=== PATIENT | female | born 1940 | race Caucasian/White ===

== ENCOUNTER 2018-05-07 06:13 | Emergency (ER) | payer OTHER, SELFPAY ==
[2018-05-07] VITALS (50 sets, daily range): BP systolic 134–205; BP diastolic 57–106; PULSE 45–58; RESP 11–22; TEMP 36.8; O2SAT 89–96
--- NOTE | 2018-05-07 06:35 | ED.GENADUL ---
Disposition Clinical Impression: Gastritis Disposition: STILL A PATIENT Medical Decision Making - Lab Data Laboratory Results - last 24 hr 05/07/18 05/07/18 05/07/18 06:38 06:38 06:38 WBC 6.24 RBC 4.47 Hgb 13.6 Hct 42.4 MCV 94.9 MCH 30.4 MCHC 32.1 RDW 15.3 H Plt Count 235 MPV 10.1 Immature Gran % 0.0 Neutrophils % 60.9 Lymphocytes % 30.8 Monocytes % 7.2 Eosinophils % 0.8 Basophils % 0.3 Absolute Neutrophils 3.80 Absolute Lymphocytes 1.92 Absolute Monocytes 0.45 Absolute Eosinophils 0.05 Absolute Basophils 0.02 PT 21.1 H INR 2.2 APTT 31.9 H Sodium 140 Potassium 4.0 Chloride 104 Carbon Dioxide 27.9 Anion Gap 8.1 BUN 23 H Creatinine 0.99 Estimated GFR/1.73 m2 54.39 Glucose 116 H Calcium 8.5 Magnesium 2.3 Total Bilirubin 0.4 AST 24 ALT 29 Alkaline Phosphatase 98 Troponin I < 0.02 NT-Pro-B Natriuret Pep Total Protein 7.7 Albumin 3.6 05/07/18 06:38 WBC RBC Hgb Hct MCV MCH MCHC RDW Plt Count MPV Immature Gran % Neutrophils % Lymphocytes % Monocytes % Eosinophils % Basophils % Absolute Neutrophils Absolute Lymphocytes Absolute Monocytes Absolute Eosinophils Absolute Basophils PT INR APTT Sodium Potassium Chloride Carbon Dioxide Anion Gap BUN Creatinine Estimated GFR/1.73 m2 Glucose Calcium Magnesium Total Bilirubin AST ALT Alkaline Phosphatase Troponin I NT-Pro-B Natriuret Pep 259 Total Protein Albumin Results reviewed for labs ordered during visit: Yes - EKG Data -: EKG Interpreted by Me Rate: bradycardia 05/07/18 06:37 Sinus bradycardia, rate 64, QRS is narrow, no ST segment elevation - Radiology Data Radiology results: image reviewed - Medical Decision Making This is a delightful 78-year-old female presents with a worried that she may have had recurrent atrial fibrillation. She developed substernal/epigastric burning sensation this morning at 4 AM. She arrives with improvement of her discomfort. She is afebrile and otherwise well-appearing. Differential diagnosis includes gastritis, ACS, arrhythmia. Patient placed on registered nurse cardiac telemetry, IV access established, referred for blood work, EKG, chest x-ray. She is given a GI cocktail. Labs reveal white count 6, hematocrit 42, platelets 235, INR 2.2, sodium 140, potassium 4.0, chloride 104, bicarb 27, BUN 23, creatinine 0.9, LFTs unremarkable, troponin negative, BNP 259. Patient's pain improved/resolved following GI cocktail. We will observe for additional 3 hours and check repeat troponin. Case to be signed out to Dr. Gaspar pending repeat laboratories. Please see her note regarding final impression and disposition. History of Present Illness - General Chief complaint: Chest Pain Stated complaint: AFIB Time Seen by Provider: 05/07/18 06:14 Source: patient, family, RN notes reviewed Mode of arrival: ambulatory Limitations: no limitations - History of Present Illness Initial comments: 78-year-old female states she was awakened this morning at 04 100 with substernal burning chest discomfort that radiated to both arms. Is rated 8 out of 10 and over the past versus dissipated now to 2 out of 10. No other exacerbating or relating factors. She denies to be vomiting. States she had nausea yesterday but no emesis. She denied recent fever, shortness of breath. She has chronic lower extremity swelling which is unchanged. Her urine output is unchanged History of A. fib, on warfarin, tachybradycardia syndrome, hypertension, diabetes, chronic dependent edema. History of bradycardia with AV yan blocking agents chest pressure. Currently being maintained on amiodarone - Related Data Insulin Detemir [Levemir] 50 unit SQ .QHS 12/31/15 Simvastatin 10 mg PO DAILY 12/31/15 Valsartan [Diovan] 320 mg PO DAILY 12/31/15 Levothyroxine Sodium 100 mcg PO DAILY 07/14/16 Magnesium Oxide [Mag-Ox 400] 400 mg PO BID #180 tab 07/15/16 Amiodarone HCl 200 mg PO DAILY #90 tab-cap 09/16/16 Torsemide 10 mg PO DAILY #30 tab-cap 04/23/17 Clobetasol/Emoll [Temovate Emollient 0.05%] 15 gm TP DAILY 01/06/18 Lancets [Bd Ultra-Fine Ii] 1 each MC PRN each 01/06/18 Warfarin Sodium 5 mg PO DAILY tab-cap 01/06/18 Turmeric Root Extract [Turmeric] 1 tab PO DAILY 05/07/18 Allergies Allergy/AdvReac Type Severity Reaction Status Date / Time GONZÁLEZ Inhibitors Allergy Mild Unverified 05/07/18 06:25 Sulfa (Sulfonamide Allergy Mild Unverified 05/07/18 06:25 Antibiotics) aspirin [From Anacin] AdvReac Intermediate Unverified 05/07/18 06:25 caffeine [From Anacin] AdvReac Intermediate Unverified 05/07/18 06:25 morphine AdvReac Intermediate Visual Unverified 05/07/18 06:25 Disturbances atenolol AdvReac Mild Unverified 05/07/18 06:25 Review of Systems Other: 6 systems reviewed, otherwise negative Past Medical History - Past Medical History Medical history: AFIB, diabetes Surgical history: cholecystectomy, other (both hips foot carpal tunnel,lap) Family history: no significant family history - Social History Alcohol use: none Drug use: none General Exam - General Limitations: no limitations General appearance: alert, in no apparent distress - Head Head exam: Present: atraumatic, normocephalic - Eye Eye exam: Present: PERRL, EOMI - ENT ENT exam: Present: normal exam - Neck Neck exam: Present: normal inspection, full ROM - Respiratory Respiratory exam: Present: normal lung sounds bilaterally. Absent: respiratory distress - Cardiovascular Cardiovascular Exam: Present: normal rhythm, bradycardia. Absent: systolic murmur - GI/Abdominal GI/Abdominal exam: Present: soft - Neurological Exam Neurological exam: Present: alert, oriented X3 - Psychiatric Psychiatric exam: Present: normal affect, normal mood - Skin Skin exam: Present: warm, dry, intact Course Vital Signs - 24 hr 05/07/18 05/07/18 06:23 06:29 Temperature 36.8 C Pulse 51 L Respiratory 15 19 Rate Blood Pressure 186/83 Pulse Oximetry 96
[2018-05-07] MEDS: Normal Saline Flush 10 ML SYR IVP (06:42)
[2018-05-07 06:45] LABS: Absolute Basophil Count 0.02 k/cumm (0.0-0.2); Absolute Eosinophil Count 0.05 k/cumm (0.0-0.7); Absolute Lymphocyte Count 1.92 k/cumm (1.2-3.4); Absolute Monocyte Count 0.45 k/cumm (0.11-0.7); Basophils % 0.3; Eosinophils % 0.8; HCT 42.4 % (36.0-46.0); HGB 13.6 g/dL (12.0-15.5); Lymphocytes % 30.8; Mean Corp. HGB Concentration 32.1 g/dL (32.0-36.0); Mean Corpuscular Hemoglobin 30.4 pg (27.0-33.0); Mean Corpuscular Volume 94.9 fL (80-95); Mean Platelet Volume 10.1 fL (8.0-11.0); Monocytes % 7.2; Neutrophils % 60.9; Platelet Count 235 x1000/uL (130-400); RBC 4.47 m/cumm (4.00-5.20); RBC Distribution Width 15.3 % (11.7-14.6); White Blood Cell Count 6.24 k/cumm (4.4-10.8)
[2018-05-07 07:01] LABS: ALT 29 U/L (12-78); AST 24 U/L (15-37); Albumin 3.6 g/dL (3.4-5.0); Alkaline Phosphatase 98 U/L (46-116); Anion Gap 8.1 mmol/L (3-11); BUN 23 mg/dL (7-18); Bilirubin, Total 0.4 mg/dL (0.2-1.0); CO2 27.9 mmol/L (21.0-32.0); CREATININE 0.99 mg/dL (0.55-1.02); Calcium 8.5 mg/dL (8.5-10.1); Chloride 104 mmol/L (98-107); Estimated GFR 54.39 (mL/min/1.73m2); Glucose 116 mg/dL (70-100); Magnesium 2.3 mg/dL (1.8-2.4); Sodium 140 mmol/L (136-145); Total Protein 7.7 g/dL (6.4-8.2); Troponin I < 0.02 ng/mL (0.00-0.06)
[2018-05-07 07:05] LABS: INR 2.2 (1.0-3.5); PTT Activated 31.9 sec (21.0-31.4); Prothrombin Time 21.1 sec (9.3-10.8)
[2018-05-07 07:14] LABS: NT-proBNP 259 pg/mL
--- NOTE | 2018-05-07 07:21 | DI.REPORT_ITS ---
SYMPTOM/DIAGNOSIS: CHEST PAIN PA AND LATERAL CHEST: Comparison is made with 06 October 2016. There is motion on the PA view. The heart is enlarged. The lungs show mild chronic changes at the lung bases. No superimposed infiltrate, effusion or pulmonary edema is seen. IMPRESSION: No acute abnormality. Limited exam due to respiratory motion.
--- NOTE | 2018-05-07 07:47 | DI.VRAD_ITS ---
EXAM: XR Chest, 2 Views CLINICAL HISTORY: 78 years old, female; Pain; Chest pain; Type not specified TECHNIQUE: Frontal and lateral views of the chest. COMPARISON: CR - CHEST 2 VIEWS PA,LAT 2016-10-06 20:32 FINDINGS: Lungs: Lungs mildly hyperinflated with chronic pleural-parenchymal change most pronounced at the lung bases. Evidence of prior granulomatous disease. This is similar to previous exam. No consolidative pneumonia or pulmonary edema. Pleural space: No pleural effusions. No pneumothorax. Heart: Heart size upper limits normal with pulmonary vasculature within normal limits. Mediastinum: Unremarkable. Bones/joints: Degenerative changes within the spine with mild dextroconvex curvature. Vasculature: Atherosclerotic calcification tortuous aorta without aneurysm. Upper abdomen: Surgical clips upper abdomen from prior cholecystectomy. IMPRESSION: No acute intrathoracic process. Similar appearance to previous allowing for differences in technique. Dictated and Authenticated by: Thom Casey MD. Ordering:NAYANA STARR MD
[2018-05-07 10:50] LABS: Troponin I < 0.02 ng/mL (0.00-0.06)
[2018-05-07 11:32] LABS: Lipase 98 U/L (73-393)
--- NOTE | 2018-05-07 12:02 | ED.FU ---
Disposition Clinical Impression: Atypical chest pain, Gastritis, Burning pain Disposition: HOME Condition: Stable Instructions: Chest Pain (ED), Gastritis (ED) Additional Instructions: Eat a well-balanced diet and get plenty of rest. Watch her salt intake. Use compression stockings as directed. Keep your legs elevated as much as possible. Follow-up with your scheduled appointment for your outpatient stress test as directed by her primary care doctor. Return immediately to the emergency department any worsening or new concerning symptoms. Medical Decision Making - Lab Data Laboratory Tests 05/07/18 05/07/18 05/07/18 06:38 06:38 06:38 WBC 6.24 RBC 4.47 Hgb 13.6 Hct 42.4 MCV 94.9 MCH 30.4 MCHC 32.1 RDW 15.3 H Plt Count 235 MPV 10.1 Immature Gran % 0.0 Neutrophils % 60.9 Lymphocytes % 30.8 Monocytes % 7.2 Eosinophils % 0.8 Basophils % 0.3 Absolute Neutrophils 3.80 Absolute Lymphocytes 1.92 Absolute Monocytes 0.45 Absolute Eosinophils 0.05 Absolute Basophils 0.02 PT 21.1 H INR 2.2 APTT 31.9 H Sodium 140 Potassium 4.0 Chloride 104 Carbon Dioxide 27.9 Anion Gap 8.1 BUN 23 H Creatinine 0.99 Estimated GFR/1.73 m2 54.39 Glucose 116 H Calcium 8.5 Magnesium 2.3 Total Bilirubin 0.4 AST 24 ALT 29 Alkaline Phosphatase 98 Troponin I < 0.02 NT-Pro-B Natriuret Pep Total Protein 7.7 Albumin 3.6 Lipase 05/07/18 05/07/18 05/07/18 06:38 10:30 10:30 WBC RBC Hgb Hct MCV MCH MCHC RDW Plt Count MPV Immature Gran % Neutrophils % Lymphocytes % Monocytes % Eosinophils % Basophils % Absolute Neutrophils Absolute Lymphocytes Absolute Monocytes Absolute Eosinophils Absolute Basophils PT INR APTT Sodium Potassium Chloride Carbon Dioxide Anion Gap BUN Creatinine Estimated GFR/1.73 m2 Glucose Calcium Magnesium Total Bilirubin AST ALT Alkaline Phosphatase Troponin I < 0.02 NT-Pro-B Natriuret Pep 259 Total Protein Albumin Lipase 98 05/07/18 0620: 54 bpm. Sinus bradycardia. No acute ST elevation or depression. - Radiology Data Radiology results: report reviewed, image reviewed Chest x-ray: No acute findings. - Medical Decision Making 78-year-old female with a history of atrial fibrillation on coumadin, diabetes, hypothyroidism who presents for bilateral arms burning and substernal chest heaviness and epigastric pain since yesterday. Patient was concerned that her symptoms were due to her previous rapid atrial fibrillation so she came to the ED. She had a similar episode with rapid A. fib 3 years ago. EKG on arrival noted a rate of 54 and sinus bradycardia. Labs essentially unremarkable. Initial troponin negative. Chest x-ray negative for acute findings. INR 2.2. Patient was given a GI cocktail and symptoms resolved. Upon my evaluation, patient denies any symptoms. Patient was offered admission but declined stating she feels much better would like to go home. Second troponin negative. States her last stress test was 3 years ago. Patient unable to do treadmill stress test due to walking with a cane and difficulty with ambulation. Will place an order for pharmacological stress test. Patient also inquired about compression stockings for her chronic bilateral lower extremity edema. Patient was given compression stockings, told to continue her torsemide, elevate her lower extremities and watch her salt intake. Patient was instructed to follow-up with her primary care doctor within the next week and return to the ER if worse. Care Signed Out By:: Dr. Ornelas - Vital Signs Recent Vitals - 8H: Vital Signs - 8 hr 05/07/18 05/07/18 05/07/18 06:16 06:20 06:23 Temperature 98.2 F Pulse 51 L Respiratory 13 22 15 Rate Blood Pressure 186/83 Pulse Oximetry 95 95 96 05/07/18 05/07/18 05/07/18 06:25 06:29 06:30 Temperature Pulse 51 L Respiratory 15 19 19 Rate Blood Pressure 161/106 Pulse Oximetry 94 L 96 05/07/18 05/07/18 05/07/18 06:31 06:40 06:46 Temperature Pulse 51 L 51 L Respiratory 16 16 20 Rate Blood Pressure 205/66 168/68 Pulse Oximetry 95 94 L 89 L 05/07/18 05/07/18 05/07/18 06:50 07:20 07:21 Temperature Pulse 49 L Respiratory 16 12 19 Rate Blood Pressure 155/69 Pulse Oximetry 91 L 92 L 05/07/18 05/07/18 05/07/18 07:30 07:31 07:40 Temperature Pulse 47 L Respiratory 14 17 17 Rate Blood Pressure 157/68 Pulse Oximetry 93 L 94 L 94 L 05/07/18 05/07/18 05/07/18 07:46 07:50 08:00 Temperature Pulse 46 L Respiratory 17 12 11 L Rate Blood Pressure 148/71 Pulse Oximetry 93 L 93 L 93 L 05/07/18 05/07/18 05/07/18 08:01 08:42 08:43 Temperature Pulse 46 L 47 L Respiratory 17 13 15 Rate Blood Pressure 156/68 174/70 Pulse Oximetry 93 L 93 L 93 L 05/07/18 05/07/18 05/07/18 08:46 08:50 09:00 Temperature Pulse 45 L Respiratory 12 16 16 Rate Blood Pressure 155/62 Pulse Oximetry 92 L 94 L 93 L 05/07/18 05/07/18 05/07/18 09:01 09:10 09:16 Temperature Pulse 47 L 46 L Respiratory 17 15 14 Rate Blood Pressure 147/70 139/59 Pulse Oximetry 94 L 92 L 94 L 05/07/18 05/07/18 05/07/18 09:20 09:30 09:31 Temperature Pulse 49 L Respiratory 13 15 19 Rate Blood Pressure 143/57 Pulse Oximetry 92 L 93 L 93 L 05/07/18 05/07/18 05/07/18 09:40 09:46 09:50 Temperature Pulse 46 L Respiratory 14 16 16 Rate Blood Pressure 134/68 Pulse Oximetry 93 L 92 L 92 L 05/07/18 05/07/18 05/07/18 10:00 10:01 10:10 Temperature Pulse 47 L Respiratory 14 13 15 Rate Blood Pressure 143/69 Pulse Oximetry 94 L 93 L 93 L 05/07/18 05/07/18 05/07/18 10:15 10:20 10:30 Temperature Pulse 46 L Respiratory 14 16 18 Rate Blood Pressure 152/67 Pulse Oximetry 92 L 96 93 L 05/07/18 05/07/18 05/07/18 10:31 10:40 10:45 Temperature Pulse 45 L 45 L Respiratory 14 19 17 Rate Blood Pressure 146/61 137/66 Pulse Oximetry 92 L 94 L 93 L 05/07/18 05/07/18 05/07/18 10:50 11:00 11:01 Temperature Pulse 50 L Respiratory 12 14 12 Rate Blood Pressure 161/84 Pulse Oximetry 94 L 94 L 93 L 05/07/18 05/07/18 05/07/18 11:10 11:20 11:30 Temperature Pulse Respiratory 15 16 14 Rate Blood Pressure Pulse Oximetry 94 L 95 94 L 05/07/18 11:40 Temperature Pulse Respiratory 16 Rate Blood Pressure Pulse Oximetry 93 L - Continuation of Care Continuation of Care Plan: Case endorsed to follow-up on second troponin and if negative okay to discharge home per
--- NOTE | 2018-05-07 12:44 | NUR.NOTE ---
Nursing Note: compression stockings measured and applied.
== END 2018-05-07 12:23 | disposition home or self-care (01) ==
PROVIDERS: Emergency Medicine; Emergency Provider Physician Assistant; PCP Internal Medicine
DX: R07.89 Other chest pain (principal); K29.00 Acute gastritis without bleeding; R00.1 Bradycardia, unspecified; I48.91 Unspecified atrial fibrillation; Z79.01 Long term (current) use of anticoagulants; I10 Essential (primary) hypertension; E11.9 Type 2 diabetes mellitus without complications; Z79.4 Long term (current) use of insulin
CPT/HCPCS: 36415; 80053; 83690; 93005; 99285; 71046; 83735; 83880; 84484; 85025; 85610; 85730; 93010; 99284

== ENCOUNTER 2018-06-22 21:33 | Outpatient (REF) | payer OTHER, SELFPAY ==
[2018-06-22 22:39] LABS: TSH (W/Ref FT4) 2.79 uIU/mL (0.358-3.74)
== END 2018-06-22 21:53 ==
LOC: NCHCN 21:33
PROVIDERS: PCP Internal Medicine; Visit Provider Nurse Practitioner
DX: E03.9 Hypothyroidism, unspecified (principal)
CPT/HCPCS: 84443

== ENCOUNTER 2018-07-17 10:41 | Outpatient (REF) | payer OTHER, SELFPAY ==
[2018-07-17 10:44] VITALS: BP 169/66; PULSE 58; RESP 18; TEMP 36.7; O2SAT 95
--- NOTE | 2018-07-17 11:04 | DI.CT_ITS ---
SYMPTOMS/DIAGNOSIS: FALL, HIT HEAD, ON COUMADIN NONCONTRAST HEAD CT: Comparison is made with [id number]. No intracranial hemorrhage or skull fracture is seen. The ventricles are normal in size. The sinuses and orbits are unremarkable. IMPRESSION: Negative head CT. CT OF THE CERVICAL SPINE: There is no evidence of fracture. There are degenerative disc changes greatest at C 5 - 6 through C 7 - T 1. Facet degenerative changes are present throughout , greater at the more superior levels. There is some straightening of the normal cervical lordosis secondary to degenerative changes. No fracture is identified. There is no evidence of paraspinal hematoma. IMPRESSION: Degenerative changes. No acute abnormality.
--- NOTE | 2018-07-17 11:07 | W.ED.GENAD ---
Discharge Plan Disposition Patient Disposition: HOME Condition: Good Discharge Details Chief Complaint: HeadInjury Clinical Impression: Head injury, Warfarin anticoagulation, Supratherapeutic INR Reason For Visit: HARIS Primary Care Provider: Chan Bryant ED Provider: Mini Gaspar Home Meds and New Rx's Prescriptions: Continue amiodarone 200 MG tablet 200 mg PO DAILY Qty: 90 RF: 3 torsemide 10 MG tablet 10 mg PO DAILY Qty: 30 RF: 0 lancets [BD Ultra-Fine II Lancets] 1 EACH misc 1 ea Miscellaneous PRN RF: 0 Warfarin Sodium 5 MG tablet 5 mg PO DAILY RF: 0 simvastatin 10 MG tablet 10 mg PO DAILY RF: 0 valsartan [Diovan] 320 MG tablet 320 mg PO DAILY RF: 0 insulin detemir U-100 [Levemir U-100 Insulin] 100 UNIT/ML solution 50 unit SQ .QHS RF: 0 levothyroxine 100 MCG tablet 100 mcg PO DAILY RF: 0 magnesium oxide 400 MG tablet 400 mg PO BID Qty: 180 RF: 2 turmeric root extract 500 MG capsule 1 tab PO DAILY RF: 0 Discharge Instructions Instructions: Head Injury (ED), Elevated INR (ED) Additional Instructions: Hold your Coumadin dose tonight and tomorrow night and resume at 2.5mg on Friday evening. Follow-up with [facility] on Friday as directed. Return immediately to the emergency department with any worsening or new concerning symptoms such as persistent headaches, dizziness, vomiting or any other concerns Discharge Data Discharge Date/Time-TO BE ENTERED AT DEPARTURE: 07/17/18 12:40 Discharge Physician: Mini Gaspar Medical Decision Making 78yo F w/ a h/o Afib on coumadin who presents for mechanical fall and head injury at pcp office this am. No LOC, vomiting, headache, neck pain. Pt denies any acute complaints but was advised to come here by pcp office as she is on coumadin for CT head. BP hypertensive, heart rate 58, otherwise vitals within normal limits. Pt appears nontoxic and in no acute distress. No trauma noted. No C-spine tenderness. She does have 3mm pupil size on R and 2mm pupil size on L but no other acute cranial or focal deficits -she has a history of lens implant bilaterally so this is likely baseline. Due to pt age and on coumadin, will check CT head and pt/inr. 1210 -- INR 3.9. CT head and c-spine negative. Patient is comfortable and has no acute complaints. She denies any acute bleeding. Results discussed with JAMIE Ford at [facility] - she states INR on 07/14 was 4.1 - will hold on coumadin dose tonight and tomorrow night and resume Friday. We will plan for repeat INR at PCP office on Friday. Discussed with patient and she held one dose this week and decreased another dose from 5mg to 2.5mg this week - she will plan to resume this Friday at 2.5mg. Patient was instructed on importance of returning immediately to the emergency department if she develops persistent headaches, dizziness, nausea or vomiting. HPI General Mode of arrival: EMS. Date/Time Provider Initiated Documentation: 07/17/18 10:45. Limitations to Documentation: no limitations. Information obtained by: patient. HPI Narrative: Patient is a 78-year-old female who presents for head injury at PCP office this morning. Patient was therefore a routine PT/INR check when she was walking in the office and tripped on a rug hitting her head on the floor. States he also hit her left shoulder and left hip but denies any pain in these areas. She denies LOC, vomiting, headache, dizziness, blurry vision, nausea, vomiting, neck pain or any other injuries or pain. She states she was advised to come to the ER per the PCP office for CT head because she is on Coumadin. She did not yet get her INR checked this morning before her head injury. Past medical history: Atrial fibrillation, osteoarthritis, anxiety, diabetes, GERD, hypertension, hyperlipidemia, hypothyroidism Surgical history: Cholecystectomy, carpal tunnel release, hip replacement, tubal ligation, foot surgery Social history: Denies tobacco, alcohol or drugs Medications: See list Allergies: See list PCP: [facility] Related Data Home Medications Medication Instructions Recorded Confirmed insulin detemir U-100 [Levemir 50 unit SQ .QHS 12/31/15 07/17/18 U-100 Insulin] simvastatin 10 mg PO DAILY 12/31/15 07/17/18 valsartan [Diovan] 320 mg PO DAILY 12/31/15 07/17/18 levothyroxine 100 mcg PO DAILY 07/14/16 07/17/18 magnesium oxide 400 mg PO BID #180 tab 10/10/16 10/12/18 amiodarone 200 mg PO DAILY #90 tab-cap 09/16/16 07/17/18 torsemide 10 mg PO DAILY #30 tab-cap 04/23/17 07/17/18 Warfarin Sodium 5 mg PO DAILY tab-cap 01/06/18 07/17/18 lancets [BD Ultra-Fine II Lancets] ea 01/06/18 05/07/18 turmeric root extract 1 tab PO DAILY 05/07/18 07/17/18 Previous Rx's Medication Instructions Recorded magnesium oxide 400 mg PO BID #180 tab 07/15/16 Allergies Allergy/AdvReac Type Severity Reaction Status Date / Time GONZÁLEZ Inhibitors Allergy Mild Unverified 07/17/18 10:52 Sulfa (Sulfonamide Allergy Mild Unverified 07/17/18 10:52 Antibiotics) aspirin [From Anacin] AdvReac Intermediate Unverified 07/17/18 10:52 caffeine [From Anacin] AdvReac Intermediate Unverified 07/17/18 10:52 morphine AdvReac Intermediate Visual Unverified 07/17/18 10:52 Disturbances atenolol AdvReac Mild Unverified 07/17/18 10:52 General Stated Complaint: HeadInjury LIZET: 2 Review of Systems Review of Systems All systems reviewed & are unremarkable except as noted in HPI and below PFSH Social History Smoking/Tobacco Use Status: Never Exam Const General: cooperative and healthy appearing Orientation: alert and awake [facility] Head: normal to inspection and no palpable skull fracture Ears: hearing grossly normal bilaterally, external ears normal and TM's normal bilaterally General nose exam: external nose normal Face and sinus: normal facial exam Mouth: oral mucosae normal Teeth and gingiva: dentition normal Throat: posterior oropharynx normal Eyes General: appearance normal, both eyes and all related structures Eyelids: eyelids normal Pupils: PERRL and pupil size (2mm on R, 3mm on L) EOM: EOM intact bilaterally Neck Neck: normal visual inspection Lymphatic: no lymphadenopathy noted Chest Chest: normal inspection of the chest, normal palpation of entire chest wall and no tenderness Breast inspection: normal inspection of the breasts Resp Effort & Inspection: normal respiratory effort and able to speak in complete sentences Auscultation: clear to auscultation bilaterally Cardio Rate: regular rate Rhythm: regular rhythm GI Inspection: normal to inspection Palpation: soft, not firm, no guarding, no hepatosplenomegaly, no masses and nontender Auscultation: normal bowel sounds Back/Spine/Pelvis Back: no CVA tenderness Cervical Spine: No cervical spinal tenderness Thoracic/Lumbar Spine: No thoracic spinal tenderness and No lumbar spinal tenderness Skin General skin exam: no rashes or lesions noted Neuro General: alert and awake Cognition: normal cognition Speech: speech normal Gait: normal gait Motor: muscle tone normal throughout Sensory Exam: no sensory deficits noted Extrem General: normal to inspection, full ROM and normal capillary refill Left upper extremity: normal to inspection, full ROM, shoulder/upper arm Details: inspection abnormal and normal ROM and elbow/forearm Details: normal to inspection and normal ROM; no cyanosis and no edema Left lower extremity: full ROM and hip/thigh Details: normal ROM; no tenderness Psych Appearance: grossly normal Mental Status: mental status grossly normal Speech and Movement: speech and movement normal Affect: normal affect Thought Process: normal Course Vital Signs Temperature 98.1 F 07/17/18 10:44 Pulse 58 L 07/17/18 10:44 Respiratory Rate 18 07/17/18 10:44 Blood Pressure 169/66 H 07/17/18 10:44 Pulse Oximetry 95 07/17/18 10:44 Temperature 98.1 F 07/17/18 10:44 Temperature Source Temporal Artery Scan 07/17/18 10:44 Pulse 58 L 07/17/18 10:44 Respiratory Rate 18 07/17/18 10:44 Respiratory Effort Non-Labored 07/17/18 10:56 Respiratory Depth Normal 07/17/18 10:56 Respiratory Pattern Normal 07/17/18 10:56 Blood Pressure 169/66 H 07/17/18 10:44 Blood Pressure Position Sitting 07/17/18 10:44 Pulse Oximetry 95 07/17/18 10:44 Oxygen Delivery Method Room Air 07/17/18 10:44 Oxygen Flow Rate 0 07/17/18 10:44 Pain Level 0 07/17/18 10:44
--- NOTE | 2018-07-17 11:12 | ED.GENADUL_ITS ---
Discharge Plan Disposition Patient Disposition: HOME Condition: Good Discharge Details Chief Complaint: HeadInjury Clinical Impression: Head injury, Warfarin anticoagulation, Supratherapeutic INR Reason For Visit: HARIS Primary Care Provider: Chan Bryant ED Provider: Mini Gaspar Home Meds and New Rx's Prescriptions: Continue amiodarone 200 MG tablet 200 mg PO DAILY Qty: 90 RF: 3 torsemide 10 MG tablet 10 mg PO DAILY Qty: 30 RF: 0 lancets [BD Ultra-Fine II Lancets] 1 EACH misc 1 ea Miscellaneous PRN RF: 0 Warfarin Sodium 5 MG tablet 5 mg PO DAILY RF: 0 simvastatin 10 MG tablet 10 mg PO DAILY RF: 0 valsartan [Diovan] 320 MG tablet 320 mg PO DAILY RF: 0 insulin detemir U-100 [Levemir U-100 Insulin] 100 UNIT/ML solution 50 unit SQ .QHS RF: 0 levothyroxine 100 MCG tablet 100 mcg PO DAILY RF: 0 magnesium oxide 400 MG tablet 400 mg PO BID Qty: 180 RF: 2 turmeric root extract 500 MG capsule 1 tab PO DAILY RF: 0 Discharge Instructions Instructions: Head Injury (ED), Elevated INR (ED) Additional Instructions: Hold your Coumadin dose tonight and tomorrow night and resume at 2.5mg on Friday evening. Follow-up with [facility] on Friday as directed. Return immediately to the emergency department with any worsening or new concerning symptoms such as persistent headaches, dizziness, vomiting or any other concerns Discharge Data Discharge Date/Time-TO BE ENTERED AT DEPARTURE: 07/17/18 12:40 Discharge Physician: Mini Gaspar Medical Decision Making 78yo F w/ a h/o Afib on coumadin who presents for mechanical fall and head injury at pcp office this am. No LOC, vomiting, headache, neck pain. Pt denies any acute complaints but was advised to come here by pcp office as she is on coumadin for CT head. BP hypertensive, heart rate 58, otherwise vitals within normal limits. Pt appears nontoxic and in no acute distress. No trauma noted. No C-spine tenderness. She does have 3mm pupil size on R and 2mm pupil size on L but no other acute cranial or focal deficits -she has a history of lens implant bilaterally so this is likely baseline. Due to pt age and on coumadin, will check CT head and pt/inr. 1210 -- INR 3.9. CT head and c-spine negative. Patient is comfortable and has no acute complaints. She denies any acute bleeding. Results discussed with JAMIE Ford at [facility] - she states INR on 07/14 was 4.1 - will hold on coumadin dose tonight and tomorrow night and resume Friday. We will plan for repeat INR at PCP office on Friday. Discussed with patient and she held one dose this week and decreased another dose from 5mg to 2.5mg this week - she will plan to resume this Friday at 2.5mg. Patient was instructed on importance of returning immediately to the emergency department if she develops persistent headaches, dizziness, nausea or vomiting. HPI General Mode of arrival: EMS . Date/Time Provider Initiated Documentation: 07/17/18 10:45 . Limitations to Documentation: no limitations . Information obtained by: patient . HPI Narrative: Patient is a 78-year-old female who presents for head injury at PCP office this morning. Patient was therefore a routine PT/INR check when she was walking in the office and tripped on a rug hitting her head on the floor. States he also hit her left shoulder and left hip but denies any pain in these areas. She denies LOC, vomiting, headache, dizziness, blurry vision, nausea, vomiting, neck pain or any other injuries or pain. She states she was advised to come to the ER per the PCP office for CT head because she is on Coumadin. She did not yet get her INR checked this morning before her head injury. Past medical history: Atrial fibrillation, osteoarthritis, anxiety, diabetes, GERD, hypertension, hyperlipidemia, hypothyroidism Surgical history: Cholecystectomy, carpal tunnel release, hip replacement, tubal ligation, foot surgery Social history: Denies tobacco, alcohol or drugs Medications: See list Allergies: See list PCP: [facility] Related Data Home Medications Medication Instructions Recorded Confirmed insulin detemir U-100 [Levemir 50 unit SQ .QHS 12/31/15 07/17/18 U-100 Insulin] simvastatin 10 mg PO DAILY 12/31/15 07/17/18 valsartan [Diovan] 320 mg PO DAILY 12/31/15 07/17/18 levothyroxine 100 mcg PO DAILY 07/14/16 07/17/18 magnesium oxide 400 mg PO BID #180 tab 10/10/16 10/12/18 amiodarone 200 mg PO DAILY #90 tab-cap 09/16/16 07/17/18 torsemide 10 mg PO DAILY #30 tab-cap 04/23/17 07/17/18 Warfarin Sodium 5 mg PO DAILY tab-cap 01/06/18 07/17/18 lancets [BD Ultra-Fine II Lancets] ea 01/06/18 05/07/18 turmeric root extract 1 tab PO DAILY 05/07/18 07/17/18 Previous Rx's Medication Instructions Recorded magnesium oxide 400 mg PO BID #180 tab 07/15/16 Allergies Allergy/AdvReac Type Severity Reaction Status Date / Time GONZÁLEZ Inhibitors Allergy Mild Unverified 07/17/18 10:52 Sulfa (Sulfonamide Allergy Mild Unverified 07/17/18 10:52 Antibiotics) aspirin [From Anacin] AdvReac Intermediate Unverified 07/17/18 10:52 caffeine [From Anacin] AdvReac Intermediate Unverified 07/17/18 10:52 morphine AdvReac Intermediate Visual Unverified 07/17/18 10:52 Disturbances atenolol AdvReac Mild Unverified 07/17/18 10:52 General Stated Complaint: HeadInjury LIZET: 2 Review of Systems Review of Systems All systems reviewed & are unremarkable except as noted in HPI and below PFSH Social History Smoking/Tobacco Use Status: Never Exam Const General: cooperative and healthy appearing Orientation: alert and awake [facility] Head: normal to inspection and no palpable skull fracture Ears: hearing grossly normal bilaterally, external ears normal and TM's normal bilaterally General nose exam: external nose normal Face and sinus: normal facial exam Mouth: oral mucosae normal Teeth and gingiva: dentition normal Throat: posterior oropharynx normal Eyes General: appearance normal, both eyes and all related structures Eyelids: eyelids normal Pupils: PERRL and pupil size (2mm on R, 3mm on L) EOM: EOM intact bilaterally Neck Neck: normal visual inspection Lymphatic: no lymphadenopathy noted Chest Chest: normal inspection of the chest, normal palpation of entire chest wall and no tenderness Breast inspection: normal inspection of the breasts Resp Effort & Inspection: normal respiratory effort and able to speak in complete sentences Auscultation: clear to auscultation bilaterally Cardio Rate: regular rate Rhythm: regular rhythm GI Inspection: normal to inspection Palpation: soft, not firm, no guarding, no hepatosplenomegaly, no masses and nontender Auscultation: normal bowel sounds Back/Spine/Pelvis Back: no CVA tenderness Cervical Spine: No cervical spinal tenderness Thoracic/Lumbar Spine: No thoracic spinal tenderness and No lumbar spinal tenderness Skin General skin exam: no rashes or lesions noted Neuro General: alert and awake Cognition: normal cognition Speech: speech normal Gait: normal gait Motor: muscle tone normal throughout Sensory Exam: no sensory deficits noted Extrem General: normal to inspection, full ROM and normal capillary refill Left upper extremity: normal to inspection, full ROM, shoulder/upper arm Details : inspection abnormal and normal ROM and elbow/forearm Details: normal to inspection and normal ROM; no cyanosis and no edema Left lower extremity: full ROM and hip/thigh Details: normal ROM; no tenderness Psych Appearance: grossly normal Mental Status: mental status grossly normal Speech and Movement: speech and movement normal Affect: normal affect Thought Process: normal Course Vital Signs Temperature 98.1 F 07/17/18 10:44 Pulse 58 L 07/17/18 10:44 Respiratory Rate 18 07/17/18 10:44 Blood Pressure 169/66 H 07/17/18 10:44 Pulse Oximetry 95 07/17/18 10:44 Temperature 98.1 F 07/17/18 10:44 Temperature Source Temporal Artery Scan 07/17/18 10:44 Pulse 58 L 07/17/18 10:44 Respiratory Rate 18 07/17/18 10:44 Respiratory Effort Non-Labored 07/17/18 10:56 Respiratory Depth Normal 07/17/18 10:56 Respiratory Pattern Normal 07/17/18 10:56 Blood Pressure 169/66 H 07/17/18 10:44 Blood Pressure Position Sitting 07/17/18 10:44 Pulse Oximetry 95 07/17/18 10:44 Oxygen Delivery Method Room Air 07/17/18 10:44 Oxygen Flow Rate 0 07/17/18 10:44 Pain Level 0 07/17/18 10:44
[2018-07-17 11:58] VITALS: BP 130/67; PULSE 60
[2018-07-17 12:01] LABS: INR 3.9 (1.0-3.5); Prothrombin Time 36.2 sec (9.3-10.8)
== END 2018-07-17 12:40 | disposition home or self-care (01) ==
LOC: ER 10:41
PROVIDERS: PCP Internal Medicine; Visit Provider Physician Assistant
DX: S09.90XA Unspecified injury of head, initial encounter (principal); W01.0XXA Fall on same level from slipping, tripping and stumbling without subsequent striking against object, initial encounter; R79.1 Abnormal coagulation profile; T45.515A Adverse effect of anticoagulants, initial encounter; Z79.01 Long term (current) use of anticoagulants; I10 Essential (primary) hypertension; I48.91 Unspecified atrial fibrillation
CPT/HCPCS: 36415; 99284; 70450; 72125; 85610

== ENCOUNTER 2018-09-09 09:29 | Outpatient (CLI) | payer OTHER, SELFPAY | END 2018-09-09 09:49 | PROVIDERS: PCP Internal Medicine; Visit Provider Student in an Organized Health Care Education/Training Program | DX: I10 Essential (primary) hypertension (principal); I49.5 Sick sinus syndrome; E78.5 Hyperlipidemia, unspecified | CPT/HCPCS: 93005; 93010 ==

== ENCOUNTER 2019-05-12 07:55 | Outpatient (CLI) | payer OTHER, SELFPAY | END 2019-05-12 08:15 | PROVIDERS: PCP Internal Medicine; Visit Provider Student in an Organized Health Care Education/Training Program | DX: I49.5 Sick sinus syndrome (principal); I48.91 Unspecified atrial fibrillation; I10 Essential (primary) hypertension | CPT/HCPCS: 93005; 93010 ==

== ENCOUNTER 2019-05-12 10:14 | Outpatient (CLI) | payer OTHER, SELFPAY ==
[2019-05-12 11:02] LABS: Abs Immature Grans 0.02 k/cumm (0.0-0.09); Absolute Basophil Count 0.04 k/cumm (0.0-0.2); Absolute Eosinophil Count 0.06 k/cumm (0.0-0.7); Absolute Lymphocyte Count 2.15 k/cumm (1.2-3.4); Absolute Monocyte Count 0.45 k/cumm (0.11-0.7); Absolute Neutrophil Count 3.73 k/cumm (1.2-6.7); Basophils % 0.6; Eosinophils % 0.9; Immature Grans % 0.3; Lymphocytes % 33.3; Mean Corp. HGB Concentration 32.6 g/dL (32.0-36.0); Mean Corpuscular Hemoglobin 30.6 pg (27.0-33.0); Mean Corpuscular Volume 93.9 fL (80-95); Mean Platelet Volume 10.5 fL (8.0-11.0); Neutrophils % 57.9; Platelet Count 274 x1000/uL (130-400); RBC 4.58 m/cumm (4.00-5.20); RBC Distribution Width 15.1 % (11.7-14.6); White Blood Cell Count 6.45 k/cumm (4.4-10.8)
[2019-05-12 11:14] LABS: INR 1.5 (0.9-1.1); Prothrombin Time 15.5 sec (9.3-11.0)
[2019-05-12 11:50] LABS: ALT 34 U/L (12-78); AST 31 U/L (15-37); Albumin 3.6 g/dL (3.4-5.0); Alkaline Phosphatase 95 U/L (46-116); Anion Gap 9.5 mmol/L (3-11); BUN 38 mg/dL (7-18); Bilirubin, Total 0.4 mg/dL (0.2-1.0); CO2 28.5 mmol/L (21.0-32.0); Calcium 8.9 mg/dL (8.5-10.1); Calculated LDL 43 mg/dL; Chloride 101 mmol/L (98-107); Cholesterol 106 mg/dL (50-200); Estimated GFR 43.45 (mL/min/1.73m2); Glucose 166 mg/dL (70-100); HDL Cholesterol 37 mg/dL (40-60); Magnesium 2.1 mg/dL (1.8-2.4); Potassium 3.9 mmol/L (3.5-5.1); Sodium 139 mmol/L (136-145); TSH (W/Ref FT4) 3.81 uIU/mL (0.36-3.74); Total Protein 7.3 g/dL (6.4-8.2); Triglyceride 132 mg/dL (30-150)
[2019-05-12 12:09] LABS: Bilirubin, Direct 0.16 mg/dL (0.00-0.20)
== END 2019-05-12 10:34 ==
PROVIDERS: PCP Internal Medicine; Visit Provider Student in an Organized Health Care Education/Training Program
DX: I48.91 Unspecified atrial fibrillation (principal); I49.5 Sick sinus syndrome; I10 Essential (primary) hypertension; E78.2 Mixed hyperlipidemia; E11.9 Type 2 diabetes mellitus without complications; E03.9 Hypothyroidism, unspecified; Z79.01 Long term (current) use of anticoagulants; Z82.49 Family history of ischemic heart disease and other diseases of the circulatory system
CPT/HCPCS: 36415; 80048; 80061; 80076; 83721; 99215; 83735; 84439; 84443; 85025; 85610

== ENCOUNTER 2019-06-04 02:51 | Outpatient (CLI) | payer OTHER, SELFPAY ==
--- NOTE | 2019-06-04 | PFT_ITS ---
PULMONARY FUNCTION TEST REPORT Patient - [facility] DATE OF SERVICE June 04, 2019 REQUESTING PROVIDER Eulogio Judd M.D. INTERPRETATION OF STUDY Spirometry shows no evidence of obstructive airways disease. No bronchodilator response. LUNG VOLUMES - Lung volumes show no evidence of restriction. DIFFUSION CAPACITY- Normal. AIRWAY RESISTANCE - Normal. IMPRESSION Normal pulmonary function study. Clinical correlation recommended. When this study was compared to previous one from 09/16/2016, the patient has a stable FVC and FEV1. Bianca Zelaya M.D. ERVIN/ T- 06/10/2019
[2019-06-04] MEDS: Inhaler, Assist Device 1 EACH MC (11:10)
[2019-06-04] MEDS: Albuterol HFA 18 GM 200 PUFF INH IH (11:11)
== END 2019-06-04 03:11 ==
PROVIDERS: PCP Internal Medicine; Visit Provider Student in an Organized Health Care Education/Training Program
DX: I48.91 Unspecified atrial fibrillation (principal); Z79.899 Other long term (current) drug therapy
CPT/HCPCS: 94060; 94150; 94726; 94729

== ENCOUNTER → 2019-11-09 11:15 | Outpatient (BNVA) | payer OTHER, SELFPAY | PROVIDERS: PCP Internal Medicine; Referring Provider Internal Medicine; Visit Provider Internal Medicine Cardiovascular Disease | DX: I48.1 Persistent atrial fibrillation (principal); I49.5 Sick sinus syndrome; Z79.899 Other long term (current) drug therapy; I10 Essential (primary) hypertension; E78.5 Hyperlipidemia, unspecified | CPT/HCPCS: 99204; 99215 ==

== ENCOUNTER 2020-04-04 10:23 | Outpatient (REF) | payer OTHER, SELFPAY ==
[2020-04-04 20:57] LABS: ALT 28 U/L (14-59); AST 25 U/L (15-37); Albumin 3.6 g/dL (3.4-5.0); Alkaline Phosphatase 88 U/L (46-116); Anion Gap 8.6 mmol/L (3-11); BUN 49 mg/dL (7-18); Bilirubin, Direct 0.13 mg/dL (0.00-0.20); Bilirubin, Total 0.3 mg/dL (0.2-1.0); CO2 28.4 mmol/L (21.0-32.0); Chloride 100 mmol/L (98-107); Estimated GFR 39.51 (mL/min/1.73m2); FREE T4 1.36 ng/dL (0.76-1.46); Glucose 201 mg/dL (74-106); Potassium 3.9 mmol/L (3.5-5.1); Sodium 137 mmol/L (136-145); Total Protein 7.5 g/dL (6.4-8.2)
== END 2020-04-04 10:43 ==
LOC: NCHCN 10:23
PROVIDERS: PCP Internal Medicine; Visit Provider Internal Medicine
DX: E03.9 Hypothyroidism, unspecified (principal); E11.9 Type 2 diabetes mellitus without complications; E83.42 Hypomagnesemia
CPT/HCPCS: 80048; 80076; 84439; 84443

== ENCOUNTER 2020-04-24 09:06 | Emergency (ER) | payer OTHER, SELFPAY ==
[2020-04-24] VITALS (48 sets, daily range): BP systolic 151–187; BP diastolic 50–93; PULSE 49–67; RESP 12–22; TEMP 36.5; O2SAT 94–97
--- NOTE | 2020-04-24 09:00 | RT.EKG_ITS ---
APPROVED REPORT Exam: Resting ECG Patient Location: E HR:57 bpm ECG Measurements Heart Rate 57 AXIS AK 241 P 37 QRSd 105 QRS 47 QT 469 T 22 QTc 458 <Conclusion> Sinus bradycardia...rate< 60 Prolonged AK interval...AK >220, V-rate 50- 90 Nonspecific T abnormalities, lateral leads...T <-0.10mV, I aVL V5 V6 I have reviewed and interpreted ECG and agree with software generated interpretation.
--- NOTE | 2020-04-24 09:20 | ED.GENADUL_ITS ---
Discharge Plan Disposition Patient Disposition: AGAINST MEDICAL ADVICE Condition: Stable Discharge Details Chief Complaint: Chest Pain Clinical Impression: Palpitations, Chest pain Primary Care Provider: Chan Bryant ED Provider: Mariajose Stock Home Meds and New Rx's Prescriptions: Continued amiodarone 200 MG tablet 200 mg PO DAILY Qty: 90 RF: 3 torsemide 10 MG tablet 10 mg PO DAILY Qty: 30 RF: 0 (DME) lancets [BD Ultra-Fine II Lancets] 1 EACH misc 1 ea Miscellaneous PRN RF: 0 Xarelto 20 mg tablet 20 mg PO QPM Qty: 90 RF: 3 simvastatin 10 MG tablet 10 mg PO DAILY RF: 0 valsartan [Diovan] 320 MG tablet 320 mg PO DAILY RF: 0 Levemir U-100 Insulin 100 UNIT/ML solution 50 unit SQ .QHS RF: 0 magnesium oxide 400 MG tablet 400 mg PO BID Qty: 180 RF: 2 turmeric root extract 500 MG capsule 1 tab PO DAILY RF: 0 levothyroxine 137 mcg tablet 137 mcg PO DAILY RF: 0 amlodipine 5 mg tablet 5 mg PO DAILY RF: 0 Discharge Instructions Instructions: Chest Pain (ED), Heart Palpitations (ED) Additional Instructions: You have elected to leave the emergency department AGAINST MEDICAL ADVICE. The risks of doing so, as we discussed, are or permanent disability. You may return to the emergency department anytime if you change your mind. Please return immediately to the emergency department if you develop any new or worsening symptoms, if your condition does not improve as expected, or if you become otherwise concerned. It is extremely important that you call soon as possible to make an appointment to be seen in follow-up for this visit by your [facility] doctor and also by Dr. Diaz, your scene shifter. Referrals: Alex Diaz MD [MD CONSULTING PHYSICIAN] - Chan Bryant MD [Primary Care Provider] - Discharge Data Discharge Date/Time-TO BE ENTERED AT DEPARTURE: 04/24/20 14:00 Medical Decision Making Ashley Gamble is a 80 y/o woman with a history of diabetes, tachybradycardia syndrome, hypothyroidism, hypertension, atrial fibrillation on rivaroxaban who presented to the emergency department with episodes of palpitations patient reports is consistent with her atrial fibrillation accompanied by chest pain and left arm burning, currently asymptomatic. On exam patient is well and nontoxic- appearing. Patient is bradycardic in the 50s, otherwise benign cardiopulmonary exam. Concern for acute coronary syndrome with anginal equivalent stemming from atrial fibrillation with RVR, metabolic/electrolyte derangement, possible pulmonary embolism, other. Exam/history is not consistent with acute aortic process, sepsis. Plan for EKG, chest x-ray, screening labs, telemetry. Will monitor and reassess. If initial work-up negative, anticipate repeat EKG and troponin. Labs reviewed, initial troponin negative, d-dimer negative. I did attempt to discuss patient with Dr. Diaz of cardiology, no callback during ED encounter. I did discuss the patient with cardiology team at [facility], who did accept the patient in transfer for further evaluation and treatment of possible anginal equivalent. Repeat troponin and EKG okay. I discussed plan for transfer with patient, who states that she does not want to be admitted, either to [facility] or here to [facility] as she feels very well and in her usual state of health right now and prefers to go home to follow-up as an outpatient with her PCP and scene shifter. I did discuss with patient the risks of leaving AGAINST MEDICAL ADVICE, including risk of or permanent disability. Patient verbalized understanding of this risk and has capacity for informed refusal. She continues to refuse admission. I had a lengthy discussion with Patient regarding that she may return to the emergency department at any time should she change her mind, return to emergency department precautions, home care, and importance of outpatient follow-up. Pt verbalizes understanding of the plan and is amenable. Patient discharged to home with clear plan for outpatient follow- up. All questions were answered. Disposition decision was made weighing the risks and benefits of hospitalization versus outpatient treatment, the risk for further decompensation, and the patient's wishes. Medical Records Medical records reviewed: Yes I reviewed the patient's medical records. Imaging Data Radiologic Study: Attestation: I personally reviewed and interpreted this imaging study as follows: Radiologist's impression: EXAM: XR PORTABLE CHEST AP CLINICAL HISTORY: chest pain TECHNIQUE: 2D digital imaging was performed. COMPARISON: CR CHEST 2 VIEWS PA,LAT from 05/07/2018 FINDINGS: MEDIASTINUM: Normal. HEART: Normal. PULMONARY VASCULATURE: Normal. LUNGS: No acute consolidating infiltrates. PLEURAL SPACE: No pleural effusion or pneumothorax. BONE:Age-appropriate degenerative changes in the spine and shoulders. OTHER FINDINGS:Normal. IMPRESSION: No acute pulmonary findings. Lab Data Lab results reviewed: Yes I reviewed the patient's lab results. Labs: Laboratory Tests Range/Units 04/24/20 04/24/20 04/24/20 09:16 09:16 09:16 WBC (4.4-10.8) k/cumm 6.93 RBC (4.00-5.20) m/cumm 4.26 Hgb (12.0-15.5) g/dL 12.9 Hct (36.0-46.0) % 39.8 MCV (80-95) fL 93.4 MCH (27.0-33.0) pg 30.3 MCHC (32.0-36.0) g/dL 32.4 RDW (11.7-14.6) % 14.1 Plt Count (130-400) x1000/uL 303 MPV (8.0-11.0) fL 10.3 Immature Gran % % 0.3 Neutrophils % 51.9 Lymphocytes % 40.0 Monocytes % 6.6 Eosinophils % 0.9 Basophils % 0.3 Absolute Neutrophils (1.2-6.7) k/cumm 3.60 Absolute Lymphocytes (1.2-3.4) k/cumm 2.77 Absolute Monocytes (0.11-0.7) k/cumm 0.46 Absolute Eosinophils (0.0-0.7) k/cumm 0.06 Absolute Basophils (0.0-0.2) k/cumm 0.02 D-Dimer (<500) ng/mlFEU Sodium (136-145) mmol/L 139 Potassium (3.5-5.1) mmol/L 4.0 Chloride (98-107) mmol/L 103 Carbon Dioxide (21.0-32.0) mmol/L 28.6 Anion Gap (3-11) mmol/L 7.4 BUN (7-18) mg/dL 25 H Creatinine (0.55-1.02) mg/dL 1.07 H Estimated GFR/1.73 m2 (mL/min/1.73m2) 49.47 Glucose (74-106) mg/dL 129 H Calcium (8.5-10.1) mg/dL 8.9 Magnesium (1.8-2.4) mg/dL 2.2 Total Bilirubin (0.2-1.0) mg/dL 0.4 AST (15-37) U/L 26 ALT (14-59) U/L 25 Alkaline Phosphatase (46-116) U/L 85 Troponin I (<0.06) ng/mL < 0.05 Total Protein (6.4-8.2) g/dL 7.6 Albumin (3.4-5.0) g/dL 3.5 TSH (0.36-3.74) uIU/mL 5.28 H Free T4 (0.76-1.46) ng/dL 1.24 Range/Units 04/24/20 04/24/20 09:16 11:59 WBC (4.4-10.8) k/cumm RBC (4.00-5.20) m/cumm Hgb (12.0-15.5) g/dL Hct (36.0-46.0) % MCV (80-95) fL MCH (27.0-33.0) pg MCHC (32.0-36.0) g/dL RDW (11.7-14.6) % Plt Count (130-400) x1000/uL MPV (8.0-11.0) fL Immature Gran % % Neutrophils % Lymphocytes % Monocytes % Eosinophils % Basophils % Absolute Neutrophils (1.2-6.7) k/cumm Absolute Lymphocytes (1.2-3.4) k/cumm Absolute Monocytes (0.11-0.7) k/cumm Absolute Eosinophils (0.0-0.7) k/cumm Absolute Basophils (0.0-0.2) k/cumm D-Dimer (<500) ng/mlFEU 478 Sodium (136-145) mmol/L Potassium (3.5-5.1) mmol/L Chloride (98-107) mmol/L Carbon Dioxide (21.0-32.0) mmol/L Anion Gap (3-11) mmol/L BUN (7-18) mg/dL Creatinine (0.55-1.02) mg/dL Estimated GFR/1.73 m2 (mL/min/1.73m2) Glucose (74-106) mg/dL Calcium (8.5-10.1) mg/dL Magnesium (1.8-2.4) mg/dL Total Bilirubin (0.2-1.0) mg/dL AST (15-37) U/L ALT (14-59) U/L Alkaline Phosphatase (46-116) U/L Troponin I (<0.06) ng/mL < 0.05 Total Protein (6.4-8.2) g/dL Albumin (3.4-5.0) g/dL TSH (0.36-3.74) uIU/mL Free T4 (0.76-1.46) ng/dL ECG Data Attestation: I personally reviewed and interpreted this ECG (s) as follows: Interpretation: EKG shows sinus bradycardia at 57, nl axis, subtle ST depression lateral leads c/w morphology from prior 05/24, no stemi, non-diagnostic EKG EKG shows sinus bradycardia at 52, normal axis, subtle ST depression lateral leads without major change from prior, no STEMI, nondiagnostic EKG HPI General Mode of arrival: ambulatory . Date/Time Provider Initiated Documentation: 04/24/20 09:08 . Limitations to Documentation: no limitations . Information obtained by: patient, RN notes reviewed and old records reviewed . HPI Narrative: Ashley Gamble is a 80-year-old woman with a history of diabetes, tachybradycardia syndrome, hypothyroidism, hypertension, atrial fibrillation on rivaroxaban presenting to the emergency department with episodes of A. fib with chest pain/left arm pain. Per record review, patient takes 200 mg of amiodarone daily for atrial fibrillation. Patient reports that in the past 3 days she has woken up in the middle of the night each night feeling herself to be in A. fib. Patient reports that she is always symptomatic with palpitations when she is in A. fib. Patient reports that with each incident in the past few days she has also had mild pressure in her chest and burning in her left arm. Patient reports that chest pressure and burning in her left arm stop when she feels her self go out of atrial fibrillation. Patient reports that at approximately 1:45 in the morning today she awoke with palpitations, chest pressure, and left arm burning. Patient reports that this lasted until approximately 3 AM, when all of her symptoms subsided and she went back to sleep. Patient reports that she woke up again with symptoms at 8:00 this morning. Patient reports that atrial fibrillation, central chest pressure, and left arm burning resolved while at home. She called her PCP who sent her into the emergency department. Patient reports that she currently has no symptoms and feels in her usual state of health. She denies any recent changes to her medications, and has been taking her medications as prescribed. She states that she has been eating and drinking as usual. She denies having any exertional symptoms. Patient reports that her A. fib only seems to occur when she is lying down. Related Data Home Medications Medication Instructions Recorded Confirmed Levemir U-100 Insulin 50 unit SQ .QHS 12/31/15 04/24/20 simvastatin 10 mg PO DAILY 12/31/15 04/24/20 valsartan [Diovan] 320 mg PO DAILY 12/31/15 04/24/20 magnesium oxide 400 mg PO BID #180 tab 07/15/16 04/24/20 amiodarone 200 mg PO DAILY #90 tab-cap 09/16/16 04/24/20 torsemide 10 mg PO DAILY #30 tab-cap 04/23/17 04/24/20 lancets [BD Ultra-Fine II Lancets] ea 01/06/18 11/09/19 turmeric root extract 1 tab PO DAILY 05/07/18 04/24/20 rivaroxaban 20 mg tablet 20 mg PO QPM #90 tab 05/12/19 04/24/20 amlodipine 5 mg PO DAILY 04/24/20 04/24/20 levothyroxine 137 mcg PO DAILY 04/24/20 04/24/20 Previous Rx's Medication Instructions Recorded magnesium oxide 400 mg PO BID #180 tab 07/15/16 rivaroxaban 20 mg tablet 20 mg PO QPM #90 tab 05/12/19 Allergies Allergy/AdvReac Type Severity Reaction Status Date / Time GONZÁLEZ Inhibitors Allergy Mild Unverified 04/24/20 09:15 Sulfa (Sulfonamide Allergy Mild Unverified 04/24/20 09:15 Antibiotics) aspirin [From Anacin] AdvReac Intermediate Unverified 04/24/20 09:15 caffeine [From Anacin] AdvReac Intermediate Unverified 04/24/20 09:15 morphine AdvReac Intermediate Visual Unverified 04/24/20 09:15 Disturbances atenolol AdvReac Mild bradycardia Verified 04/24/20 09:15 apixaban [From Eliquis] AdvReac confusion Verified 04/24/20 09:15 diltiazem AdvReac bradycardia Verified 04/24/20 09:15 General Stated Complaint: Chest Pain LIZET: 2 Review of Systems Narrative: Constitutional: denies fevers Eyes: denies eye pain ENT: denies ear pain, dental pain, sore throat Cardiovascular: denies edema, reports palpitations, chest pain Respiratory: denies SOB, cough GI: denies abdominal pain, vomiting, diarrhea : denies flank pain MSK: denies back pain, neck pain, arthralgias, myalgias, reports left arm burning Skin: denies rash Neuro: denies headaches, numbness, weakness PFSH Medical History Diabetes mellitus (Chronic) Social History Smoking/Tobacco Use Status: Never Alcohol Intake: never Drug use: Never What type of physical activity do you participate in: none Do you feel safe at home: Yes Do you feel safe in your relationship?: Yes Exam Narrative Exam Narrative: Constitutional: well and [id number], pleasant, conversing normally HENT: head atraumatic/normocephalic/normal inspection, mucous membranes moist Eyes: conjunctiva normal, sclera normal, pupils 3mm b/l Neck: no stridor, normal ROM, trachea midline Chest: normal inspection Resp: normal work of breathing, LCTAB Cardio: bradycardic rate, normal rhythm, no murmur appreciated GI: abdomen soft, non-tender, non-distended Back: normal inspection, no rash Skin: warm, dry, normal color, no rash Neuro: alert, not altered, grossly non-focal, normal tone Ext: no edema, no posterior calf TTP Psych: normal mood, normal affect, normal behavior Course Vital Signs Vital signs: Vital Signs Temperature 36.5 C 04/24/20 09:10 Pulse 60 04/24/20 09:10 Respiratory Rate 04/24/20 09:10 Pulse Oximetry 97 04/24/20 09:10 Temperature 36.5 C 04/24/20 09:10 Temperature Source Temporal Artery Scan 04/24/20 09:10 Pulse 60 04/24/20 09:10 Respiratory Rate 04/24/20 09:10 Respiratory Effort Non-Labored 04/24/20 09:13 Blood Pressure Position Supine 04/24/20 09:10 Pulse Oximetry 97 04/24/20 09:10 Oxygen Delivery Method Room Air 04/24/20 09:10 Oxygen Flow Rate 0 04/24/20 09:10 Pain Level 8 04/24/20 09:10
[2020-04-24 09:26] LABS: Abs Immature Grans 0.02 k/cumm (0.0-0.09); Absolute Basophil Count 0.02 k/cumm (0.0-0.2); Absolute Eosinophil Count 0.06 k/cumm (0.0-0.7); Absolute Lymphocyte Count 2.77 k/cumm (1.2-3.4); Absolute Monocyte Count 0.46 k/cumm (0.11-0.7); Basophils % 0.3; Eosinophils % 0.9; HCT 39.8 % (36.0-46.0); HGB 12.9 g/dL (12.0-15.5); Immature Grans % 0.3 %; Mean Corp. HGB Concentration 32.4 g/dL (32.0-36.0); Mean Corpuscular Hemoglobin 30.3 pg (27.0-33.0); Mean Corpuscular Volume 93.4 fL (80-95); Mean Platelet Volume 10.3 fL (8.0-11.0); Monocytes % 6.6; Neutrophils % 51.9; Platelet Count 303 x1000/uL (130-400); RBC 4.26 m/cumm (4.00-5.20); RBC Distribution Width 14.1 % (11.7-14.6); White Blood Cell Count 6.93 k/cumm (4.4-10.8)
[2020-04-24 09:41] LABS: ALT 25 U/L (14-59); AST 26 U/L (15-37); Albumin 3.5 g/dL (3.4-5.0); Alkaline Phosphatase 85 U/L (46-116); Anion Gap 7.4 mmol/L (3-11); BUN 25 mg/dL (7-18); Bilirubin, Total 0.4 mg/dL (0.2-1.0); CO2 28.6 mmol/L (21.0-32.0); CREATININE 1.07 mg/dL (0.55-1.02); Calcium 8.9 mg/dL (8.5-10.1); Chloride 103 mmol/L (98-107); Estimated GFR 49.47 (mL/min/1.73m2); Glucose 129 mg/dL (74-106); Magnesium 2.2 mg/dL (1.8-2.4); Sodium 139 mmol/L (136-145); Total Protein 7.6 g/dL (6.4-8.2); Troponin I < 0.05 ng/mL (<0.06)
--- NOTE | 2020-04-24 10:04 | DI.RAD_ITS ---
EXAM: XR PORTABLE CHEST AP CLINICAL HISTORY: chest pain TECHNIQUE: 2D digital imaging was performed. COMPARISON: CR CHEST 2 VIEWS PA,LAT from 05/07/2018 FINDINGS: MEDIASTINUM: Normal. HEART: Normal. PULMONARY VASCULATURE: Normal. LUNGS: No acute consolidating infiltrates. PLEURAL SPACE: No pleural effusion or pneumothorax. BONE:Age-appropriate degenerative changes in the spine and shoulders. OTHER FINDINGS:Normal. IMPRESSION: No acute pulmonary findings. DATA REPOSITORY: RADIATION DOSE DELIVERED:
[2020-04-24 10:13] LABS: TSH (W/Ref FT4) 5.28 uIU/mL (0.36-3.74)
[2020-04-24 10:23] LABS: D-Dimer 478 ng/mlFEU (<500)
[2020-04-24 10:30] LABS: FREE T4 1.24 ng/dL (0.76-1.46)
--- NOTE | 2020-04-24 11:30 | RT.EKG_ITS ---
APPROVED REPORT Exam: Resting ECG Patient Location: E HR:52 bpm ECG Measurements Heart Rate 52 AXIS OH 235 P 23 QRSd 108 QRS 46 QT 486 T 24 QTc 454 <Conclusion> Sinus bradycardia...rate< 60 Prolonged OH interval...OH >220, V-rate 50- 90 EKG shows sinus bradycardia at 52, normal axis, subtle ST depression lateral leads without major argueta ge from prior, no STEMI, nondiagnostic EKG
[2020-04-24 12:22] LABS: Troponin I < 0.05 ng/mL (<0.06)
--- NOTE | 2020-04-24 13:57 | NUR.NOTE ---
Nursing Note: Referral faxed to [facility] for follow up this week. Jeanine Lara.
== END 2020-04-24 14:00 | disposition left against medical advice (07) ==
PROVIDERS: Emergency Provider Student in an Organized Health Care Education/Training Program; PCP Internal Medicine
DX: R00.2 Palpitations (principal); R07.9 Chest pain, unspecified; Z53.29 Procedure and treatment not carried out because of patient's decision for other reasons; I48.91 Unspecified atrial fibrillation; I10 Essential (primary) hypertension; E11.9 Type 2 diabetes mellitus without complications; Z79.4 Long term (current) use of insulin
CPT/HCPCS: 80053; 93005; 99285; 71045; 83735; 84439; 84443; 84484; 85025; 85379; 93010; 99284

== ENCOUNTER 2020-05-04 00:36 | Outpatient (CLI) | payer OTHER, SELFPAY ==
--- NOTE | 2020-05-04 10:30 | DI.NM_ITS ---
APPROVED REPORT Exam: Pharmacologic Patient Location: Out-Patient Room/Bed: Stress Nurse: Ngoc Taylor RN BMI: 42.50 Baseline Rhythm: Sinus Rhythm Comment: first degree avb Indications: Palpitations, Chest Pain, CAD Medical History Medical History: Anxiety, Arrhythmia, Atrial Fibrillation, CAD non obstructive, HTN, Hyperlipidemia, Diabetes, Obesity Cardiac Medications: Amiodarone, Amlodipine, Torsemide/Demadex, Valsartan/ Diovan Allergies: No known drug allergies Cardiac Risk Factors: HTN, Hyperlipidemia, Diabetes (insulin), FHX of CAD, CVD Pretest Chest Pain Characteristics: Non-exertional Chest pain Exercise History: Sedentary Physical Disabilities: Legs Lung Sounds: Clear to auscultation Heart Sounds: Regular Stress Test Details Test: Pharmacologic stress testing performed using 0.4 mg of regadenoson per 5 mL given IV over 10 s econds. Reason for pharmacologic stress test: physical limitation. Nuclear Acquisition: Rest Tc-99m/Stress Tc-99m 1 day Rest Isotope: Tc-99m Sestamibi. Dose: 12 Date: 05/04/2020 Injection Time: 1020 Stress Isotope: Tc-99m Sestamibi. Dose: 39 Date: 05/04/2020 Injection Time: 1140 HR Resting HR Supine: 56 bpm Max Heart Rate (APMHR): 141 bpm Target HR (85% APMHR): 119 bpm Max HR Achieved: 67 bpm % of APMHR: 47 Recovery HR: 57 bpm HR response to stress: Normal HR response to stress BP Resting BP Supine: 208/84 mmHg Max BP: 208/84 mmHg Recovery BP: 180/76 mmHg BP response to stress: Abnormal hypertensive response to stress. Comment: BR hypertensive at reat, normal blood pressure response to medication stress. ECG Resting ECG: Sinus Bradycardia, 1st degree AV block Stress ECG: Sinus Rhythm, 1st degree AV block Maximum ST Deviation: 1.2 mm Arrhythmia: None Recovery ECG: Sinus Bradycardia, 1st degree AV block Recovery Arrhythmia: None Clinical Stress Symptoms: Chest pain Exercise duration: 6 min13 sec Exercise capacity: 1 METs Stress ECG Conclusion 1. This is a pharmacologic myocardial perfusion imaging study, done with regadenoson 2. the resting electrocardiogram showed first-degree AV block 3. Hypertension was present throughout the test 4. Peak heart rate achieved was 46% of predicted. Electrocardiographically the test was nondiagnosti c due to inadequate heart rate Critical Notification Critical Value: Yes Physician Notified Date: 05/04/2020 Time: 1140 Physician Name: Danielito Report Read Back MPI Conclusion Myocardial perfusion is negative for ischemia Inferobasal segment area is possibly infarcted versus artifact EF 48% Radiologist Interpretation no evidence of ischemia or infarct Radiologist Interpretation by: Alin Jaimes MD Interpretation Date/Time: 05/08/2020 14:56:50
[2020-05-04] MEDS: Regadenoson 0.4 MG/5 ML SYR IVP (11:27)
== END 2020-05-04 00:56 ==
PROVIDERS: PCP Internal Medicine; Visit Provider Internal Medicine
DX: R07.9 Chest pain, unspecified (principal); R00.2 Palpitations; I25.10 Atherosclerotic heart disease of native coronary artery without angina pectoris; I44.0 Atrioventricular block, first degree; I48.91 Unspecified atrial fibrillation; I10 Essential (primary) hypertension; E78.5 Hyperlipidemia, unspecified; E11.9 Type 2 diabetes mellitus without complications; E66.9 Obesity, unspecified; R94.39 Abnormal result of other cardiovascular function study
CPT/HCPCS: 78452; 93016; 93018; 93017; J2785

== ENCOUNTER → 2020-05-09 09:15 | Outpatient (BNVA) | payer OTHER, SELFPAY | PROVIDERS: PCP Internal Medicine; Referring Provider Internal Medicine; Visit Provider Internal Medicine Cardiovascular Disease | DX: I49.5 Sick sinus syndrome (principal); R00.2 Palpitations; R10.13 Epigastric pain; R60.0 Localized edema; R07.9 Chest pain, unspecified; I48.91 Unspecified atrial fibrillation; I10 Essential (primary) hypertension | CPT/HCPCS: 99214 ==

== ENCOUNTER 2020-05-16 04:47 | Outpatient (CLI) | payer OTHER, SELFPAY ==
--- NOTE | 2020-05-18 12:36 | W.HOLTRPT ---
Date of service: 05/18/20 Time of Service: 12:36 Holter Monitor Report Referring Provider:: marycarmen Indications:: Palpitations Holter Monitor Note: Is a 48-hour Holter monitor ordered for indication palpitations. ?Patient was normal sinus rhythm for majority recording. ?There was one episode of supraventricular tachycardia which lasted 3 beats. There were rare PACs. ?There were 0 episodes of ventricular tachycardia and 2 total premature ventricular contractions. ?There were 0 episodes of atrial fibrillation no pauses grade 3 seconds no evidence of high degree heart block. ?Patient triggered events there were associated with sleeping were normal sinus rhythm and one single PAC.
== END 2020-05-16 05:07 ==
PROVIDERS: PCP Internal Medicine; Visit Provider Internal Medicine Cardiovascular Disease
DX: R00.2 Palpitations (principal); I49.1 Atrial premature depolarization
CPT/HCPCS: 93225; 93226

== ENCOUNTER 2020-05-18 | Outpatient (CLI) | payer OTHER, SELFPAY | END 2020-05-18 00:20 | PROVIDERS: PCP Internal Medicine; Referring Provider Internal Medicine Cardiovascular Disease; Visit Provider Internal Medicine Cardiovascular Disease | DX: R00.2 Palpitations (principal); I49.1 Atrial premature depolarization | CPT/HCPCS: 93227 ==

== ENCOUNTER 2020-05-18 10:56 | Outpatient (CLI) | payer OTHER, SELFPAY | END 2020-05-18 11:16 | PROVIDERS: PCP Internal Medicine; Visit Provider Internal Medicine | DX: R00.2 Palpitations (principal) | CPT/HCPCS: 93226 ==

== ENCOUNTER 2020-05-22 11:19 | Outpatient (REF) | payer OTHER, SELFPAY ==
[2020-05-22 21:15] LABS: Anion Gap 7.4 mmol/L (3-11); BUN 31 mg/dL (7-18); CO2 28.6 mmol/L (21.0-32.0); CREATININE 1.29 mg/dL (0.55-1.02); Calcium 8.7 mg/dL (8.5-10.1); Chloride 104 mmol/L (98-107); Estimated GFR 39.87 (mL/min/1.73m2); FREE T4 1.28 ng/dL (0.76-1.46); Glucose 184 mg/dL (74-106); Potassium 4.6 mmol/L (3.5-5.1); Sodium 140 mmol/L (136-145); TSH 5.22 uIU/mL (0.36-3.74)
== END 2020-05-22 11:39 ==
LOC: NCHCN 11:19
PROVIDERS: PCP Internal Medicine; Visit Provider Internal Medicine
DX: E03.9 Hypothyroidism, unspecified (principal); I10 Essential (primary) hypertension
CPT/HCPCS: 80048; 84439; 84443

== ENCOUNTER 2020-06-20 00:38 | Outpatient (CLI) | payer OTHER, SELFPAY ==
--- NOTE | 2020-06-20 06:15 | DI.US_ITS ---
APPROVED REPORT EXAM: Comprehensive 2D, Doppler, and color-flow Echocardiogram Patient Location: Out-Patient Indications: Increased Edema Other Information Study Quality: Adequate Conclusion Left Ventricle : Left ventricle is mildly dilated. The left ventricular systolic function is normal. The left ventricular ejection fraction is within the normal range. There is normal left ventricular w all thickness. LVEF is 50%. Right Ventricle : The right ventricle is normal size. The right ventricular systolic function is norm al. The RVSP is 31.9 mmHg. Atria : Left atrium is mildly dilated. Right atrium is borderline dilated. Aortic Valve : The Aortic valve is sclerotic. Mild aortic regurgitation. Great Vessels : The aortic root is normal in size. The ascending aorta is mildly dilated. Aortic arch is normal in caliber. IVC is normal in size and collapses >50% with inspiration. Please see remainder of study for further details. Compared to study from 01/01/2016: Patient has developed mild to moderate mitral regurgitation. Wall motion Left Ventricle Left ventricle is mildly dilated. The left ventricular systolic function is normal. The left ventricu lar ejection fraction is within the normal range. There is normal left ventricular wall thickness. Th ere is normal LV segmental wall motion. The left ventricular diastolic function is normal. There is n o ventricular septal defect visualized. LVEF is 50%. Right Ventricle The right ventricle is normal size. The right ventricular systolic function is normal. The RVSP is 31 .9 mmHg. Atria Left atrium is mildly dilated. Right atrium is borderline dilated. The interatrial septum is intact w ith no evidence for an atrial septal defect. Aortic Valve The Aortic valve is sclerotic. There is no aortic valvular stenosis. Mild aortic regurgitation. Mitral Valve The mitral valve is normal in structure. No evidence of mitral valve stenosis. Mild to moderate rangel l regurgitation. Tricuspid Valve The tricuspid valve is normal in structure. There is no tricuspid valve stenosis. Mild tricuspid regu rgitation. Pulmonic Valve The pulmonary valve is normal in structure. There is no pulmonic valvular stenosis. There is no pulmo denisse valvular regurgitation. Great Vessels The aortic root is normal in size. The ascending aorta is mildly dilated. Aortic arch is normal in ca liber. IVC is normal in size and collapses >50% with inspiration. Pericardium There is no pericardial effusion. 2D Dimensions IVSD d PLAX 0.70 cm F: 0.6-1.0 LV Vol A2C d MOD 117.1 mL LVPW d PLAX 0.81 cm F: 0.6 - 1.0 LV Vol A4C d MOD 122.4 mL LVID d PLAX 5.40 cm F: 3.8 - 5.2 LA vol/ BSA A2C s A-L 36.9 mL/m2 LVDs 3.80 cm F: 2.2 - 3.5 LA vol/ BSA A4C s A-L 40.7 mL/m2 Ao Root d 2.31 cm F: 2.7 - 3.3 LA Vol/ BSA Biplane s A-L 40.0 mL/m2 RA Area A4C 17.69 cm2 LA Area A4C s MOD 25.26 cm2 RA Vol/ BSA A4C s A-L 23.5 mL/m2 LA Area A2C s MOD 23.28 cm2 Ao Asc Diam d 3.48 cm F: 2.3 - 3.1 LV EF A4C MOD 56.0 % LV EF Teichholz 55.9 % LV EF A2C MOD 50.9 % LVEF (Amato's) 53.39 % F: 54 - 74 LV EF Biplane MOD 53.4 % LV Volume 89.73 mL F: 46 - 106 SV 64.33 mL LV Volume Index 43.98 mL/m2 F: 29 - 61 SV Index 31.48 mL/m2 LV Vol Biplane MOD 120.5 mL FS 29.45 % M-Mode TAPSE 2.17 cm (M/F) >1.7 LV Diastology MV E' medial 0.080 (>0.07 m/s) E/A Ratio 1.2 LV E/e MED 10.85 (<14) MV E Vmax 0.87 (0.4-1.3 m/s) MV E' lateral 0.089 (>0.1 m/s) MV A Vmax 0.70 (0.4-1.3 m/s) LV E/e LAT 9.80 (<14) MV E/A Ratio 1.20 MV E/E' medial 10.89 MV E/E' lateral 9.81 Aortic Valve LVOT Area 2.82 cm2 AoV Area Vmax 1.59 cm2 LVOT Vmax 0.92 m/s AoV Area/ BSA (Vmax) 0.78 cm2/m2 LVOT Mean Jorge. 0.58 m/s DEEDEE Mean Jorge. 1.51 cm2 LVOT Peak Grad 3.4 mmHg DEEDEE Mean Jorge. Index 0.74 cm2/m2 LVOT Mean Grad 1.6 mmHg AR DT 2517 msec LVOT VTI 0.262 m AR PHT 730 msec LVOT Diam s 1.85 cm AoV Vmax 1.64 m/s Velocity Ratio 0.56 AoV Mean Jorge. 1.08 m/s AoV Peak Grad 10.7 mmHg LVOT SV 73.86 mL AoV Mean Grad 5.3 mmHg AoV VTI 0.440 m AoV Area VTI 1.68 cm2 AoV Area/ BSA (VTI) 0.82 cm/m2 Mitral Valve MV DT 190 (160-240 msec) MR Vmax 5.33 m/s MV PHT 55 msec MR VTI 2.524 m MV Area PHT 4.00 cm2 MR Peak Grad 113.6 mmHg MV VTI 0.323 m MR Mean Grad 93.8 mmHg MV VTI Annulus 0.314 m MR PISA Radius 0.49 cm MV Area VTI 2.23 (4.0-6.0 cm2) MR EROA 0.10 cm2 MR Aliasing Velocity 0.35 m/s MR PISA 1.53 cm2 Pulmonary Valve PV Vmax 1.03 (0.5-1.5 m/s) RVOT Peak Gr. 1.26 mmHg PV Peak Grad 4.3 mmHg RVOT Mean Gr. 0.70 mmHg PV Mean Grad 2.0 mmHg RVOT VTI 0.172 m PV VTI 0.229 m RVOT Vmax 0.56 m/s Tricuspid Valve TR Peak Grad 28.9 mmHg TR Vmax 2.69 m/s RA Pressure 3.00 mmHg RVSP (TR) 31.9 mmHg
== END 2020-06-20 00:58 ==
PROVIDERS: PCP Internal Medicine; Visit Provider Internal Medicine Cardiovascular Disease
DX: R10.13 Epigastric pain (principal); R60.0 Localized edema; I35.0 Nonrheumatic aortic (valve) stenosis
CPT/HCPCS: 93306

== ENCOUNTER → 2020-06-23 11:13 | Outpatient (BNVA) | payer OTHER, SELFPAY | PROVIDERS: PCP Internal Medicine; Referring Provider Internal Medicine; Visit Provider Internal Medicine Cardiovascular Disease | DX: I49.5 Sick sinus syndrome; I48.91 Unspecified atrial fibrillation; R60.9 Edema, unspecified; I10 Essential (primary) hypertension; E11.9 Type 2 diabetes mellitus without complications; Z79.4 Long term (current) use of insulin; Z79.899 Other long term (current) drug therapy | CPT/HCPCS: 99214 ==

== ENCOUNTER 2020-06-29 09:28 | Outpatient (REF) | payer OTHER, SELFPAY ==
[2020-06-29 21:03] LABS: Anion Gap 6.5 mmol/L (3-11); BUN 37 mg/dL (7-18); CO2 29.5 mmol/L (21.0-32.0); CREATININE 1.25 mg/dL (0.55-1.02); Chloride 103 mmol/L (98-107); Estimated GFR 41.34 (mL/min/1.73m2); Glucose 210 mg/dL (74-106); Potassium 4.6 mmol/L (3.5-5.1); Sodium 139 mmol/L (136-145)
== END 2020-06-29 09:48 ==
LOC: NCHCN 09:28
PROVIDERS: PCP Internal Medicine; Visit Provider Internal Medicine
DX: I48.0 Paroxysmal atrial fibrillation (principal)
CPT/HCPCS: 80048

== ENCOUNTER → 2020-12-26 10:32 | Outpatient (BNVA) | payer OTHER, SELFPAY | PROVIDERS: PCP Internal Medicine; Referring Provider Internal Medicine; Visit Provider Internal Medicine Cardiovascular Disease | DX: I49.5 Sick sinus syndrome (principal); E66.9 Obesity, unspecified; I10 Essential (primary) hypertension; R60.0 Localized edema; Z79.01 Long term (current) use of anticoagulants; Z79.899 Other long term (current) drug therapy | CPT/HCPCS: 99214 ==

== ENCOUNTER 2021-06-28 10:48 | Outpatient (CLI) | payer MEDICARE, SELFPAY ==
--- NOTE | 2021-06-28 10:45 | RT.EKG_ITS ---
APPROVED REPORT Exam: Resting ECG Reason for Exam: afib Patient Location: O HR:53 bpm ECG Measurements Heart Rate 53 [place] [id number] P [id number] QRSd 123 QRS 21 QT 471 T 12 QTc 443 Conclusion Sinus bradycardia First-degree AV block
== END 2021-06-28 10:49 | disposition home or self-care (01) ==
LOC: DI.CARD 10:57
PROVIDERS: PCP Internal Medicine; Referring Provider Internal Medicine; Visit Provider Internal Medicine Cardiovascular Disease
DX: I48.19 Other persistent atrial fibrillation (principal); I49.5 Sick sinus syndrome
CPT/HCPCS: 93010

== ENCOUNTER → 2021-06-28 10:48 | Outpatient (BNVA) | payer MEDICARE, SELFPAY | PROVIDERS: PCP Internal Medicine; Referring Provider Internal Medicine; Visit Provider Internal Medicine Cardiovascular Disease | DX: I48.91 Unspecified atrial fibrillation (principal); I49.5 Sick sinus syndrome; I10 Essential (primary) hypertension; R60.9 Edema, unspecified; Z79.01 Long term (current) use of anticoagulants | CPT/HCPCS: 93005; 99213 ==

== ENCOUNTER 2021-07-19 10:43 | Outpatient (REF) | payer MEDICARE, SELFPAY ==
[2021-07-19 14:58] LABS: Hemoglobin A1C 7.1 % (<5.7)
[2021-07-19 15:05] LABS: Anion Gap 8.5 mmol/L (3-11); BUN 37 mg/dL (7-18); CO2 29.5 mmol/L (21.0-32.0); CREATININE 1.3 mg/dL (0.55-1.02); Calcium 9.2 mg/dL (8.5-10.1); Chloride 103 mmol/L (98-107); Estimated GFR 39.41 (mL/min/1.73m2); Glucose 201 mg/dL (74-106); Potassium 4.5 mmol/L (3.5-5.1); Sodium 141 mmol/L (136-145); TSH (W/Ref FT4) 3.75 uIU/mL (0.36-3.74)
[2021-07-19 15:49] LABS: FREE T4 1.42 ng/dL (0.76-1.46)
== END 2021-07-19 10:44 | disposition home or self-care (01) ==
LOC: NCHCN 10:43
PROVIDERS: PCP Internal Medicine; Visit Provider Family Medicine
DX: E11.9 Type 2 diabetes mellitus without complications (principal); I48.0 Paroxysmal atrial fibrillation; E03.9 Hypothyroidism, unspecified; I10 Essential (primary) hypertension; E83.42 Hypomagnesemia
CPT/HCPCS: 80048; 83036; 84439; 84443

== ENCOUNTER 2021-08-16 18:48 | Outpatient (REF) | payer MEDICARE, SELFPAY ==
[2021-08-18 18:22] LABS: COVID-19 RT-PCR UVMMC Result Negative (Negative)
== END 2021-08-16 18:49 | disposition home or self-care (01) ==
LOC: NCHCN 18:48
PROVIDERS: PCP Internal Medicine; Visit Provider Nurse Practitioner Family
DX: Z20.822 Contact with and (suspected) exposure to COVID-19 (principal); J06.9 Acute upper respiratory infection, unspecified
CPT/HCPCS: U0003

== ENCOUNTER → 2021-12-27 11:00 | Outpatient (BNVA) | payer MEDICARE, SELFPAY | PROVIDERS: PCP Internal Medicine; Visit Provider Internal Medicine Cardiovascular Disease | DX: I10 Essential (primary) hypertension (principal); I48.0 Paroxysmal atrial fibrillation | CPT/HCPCS: 99213 ==

== ENCOUNTER 2022-01-23 16:26 | Outpatient (REF) | payer MEDICARE, SELFPAY ==
[2022-01-23 16:35] LABS: HCT 38.5 % (36.0-46.0); HGB 11.6 g/dL (11.2-15.7); MCH 26.4 pg (27.0-33.0); MCHC 30.1 % (32.0-36.0); MCV 87.7 fL (80-95); MPV 11.2 fL (8.0-11.0); Platelet Count 298 10^3/uL (130-400); RBC 4.39 10^6/uL (3.93-5.22); RDW 15.8 % (11.7-14.6); RDW-SD 50.8 fL; WBC 7.58 10^3/uL (4.4-10.8)
[2022-01-23 16:53] LABS: ALT 24 U/L (14-59); AST 26 U/L (15-37); Albumin 3.8 g/dL (3.4-5.0); Alkaline Phosphatase 105 U/L (46-116); Anion Gap 8.1 mmol/L (3-11); BUN 39 mg/dL (7-18); Bilirubin, Total 0.3 mg/dL (0.2-1.0); CO2 29.9 mmol/L (21.0-32.0); CREATININE 1.1 mg/dL (0.55-1.02); Calcium 9.2 mg/dL (8.5-10.1); Chloride 105 mmol/L (98-107); Estimated GFR 47.79 (mL/min/1.73m2); Glucose 146 mg/dL (74-106); Potassium 4.5 mmol/L (3.5-5.1); Sodium 143 mmol/L (136-145); Total Protein 7.8 g/dL (6.4-8.2)
== END 2022-01-23 16:27 | disposition home or self-care (01) ==
LOC: NCHCN 16:26
PROVIDERS: PCP Internal Medicine; Visit Provider Family Medicine
DX: I10 Essential (primary) hypertension (principal)
CPT/HCPCS: 80053; 85027

== ENCOUNTER 2022-04-01 18:34 | Emergency (ER) | payer MEDICARE, SELFPAY ==
[2022-04-01 18:37] VITALS: BP 128/106; PULSE 63; RESP 17; TEMP 35.8; O2SAT 95
--- NOTE | 2022-04-01 18:54 | ED.GENADUL_ITS ---
Discharge Plan Disposition Patient Disposition: HOME Condition: Improving Discharge Details Clinical Impression: Acute anterior epistaxis Primary Care Provider: Stanley Le ED Provider: Estelle Ibarra Home Meds and New Rx's Prescriptions: Continued hydroxyzine HCl 10 mg tablet 10 mg PO QHS clonidine HCl 0.1 mg tablet 0.1 mg PO QHS torsemide 10 mg tablet 20 mg PO DAILY Qty: 30 amiodarone 200 MG tablet 200 mg PO QNOON Qty: 90 Rx Instructions: Take with food. (DME) lancets [BD Ultra-Fine II Lancets] 1 EACH misc 1 ea Miscellaneous PRN simvastatin 10 MG tablet 10 mg PO DAILY Levemir U-100 Insulin 100 UNIT/ML solution 50 unit SQ .QHS valsartan [Diovan] 320 mg tablet 160 mg PO DAILY magnesium oxide 400 MG tablet 400 mg PO BID Qty: 180 2RF Rx Instructions: Dr. Bryant may need to increase your dose. turmeric root extract 500 MG capsule 1 tab PO DAILY levothyroxine 137 mcg tablet 137 mcg PO DAILY Xarelto 20 mg tablet 20 mg PO QNOON Rx Instructions: must administer with evening meal No Action amoxicillin-pot clavulanate 875-125 mg tablet 1 tab PO BID Qty: 8 0RF Discharge Instructions Instructions: Nosebleed (ED) Additional Instructions: As we discussed, your nose is fragile right now and more likely to bleed. Please try to avoid sneezing, bending forward, heavy lifting, putting her finger in her nose or other foreign bodies. Please continue to keep your nose moist. Instead of applying Vaseline in the nose at this time, use nasal saline or other aerosolized nasal moisturizer. Please encourage hydration. If you do begin having bleeding again, use the spray and apply 2 sprays to both nostrils and apply the clamp given for 20 minutes. If after this, the bleeding continues please return to the emergency department. I would like for you to follow-up with your primary care in 1-2 weeks for reevaluation. If you develop any new or worsening symptoms please seek care urgently once again. Referrals: Stanley Le MD [Primary Care Provider] - Discharge Data Discharge Date/Time-TO BE ENTERED AT DEPARTURE: 04/01/22 20:32 Medical Decision Making Patient is a pleasant 82-year-old female, accompanied by significant other, with chief complaint of epistaxis. She reports this began insidiously while eating dinner this evening. She does report that she has a remote history of recurrent epistaxis for which she had a vessel cauterized by ENT several years ago. Patient is anticoagulated on Xarelto for atrial fibrillation. She denies any digital manipulation, trauma, exertion, sneezing. She also denies any excessive bleeding such as blood in her stool, hematuria, hemoptysis, bleeding of her gums, excessive bruising On exam, patient appears nontoxic. She has small slow bleed from right nares. No other signs of bleeding. VS stable, not hypotensive. Does not appear anemic. No evidence of trauma. Clamp applied for 20 minutes to the patient's nose on arrival. Initially help with the bleeding, but minutes after removal of the bleeding did start again, a slow trickle from the right naris. No singular bleeding vessel was able to be identified. Rather, the Hesselbach's plexus appears to be raw and slightly edematous. We will try Afrin and reapplied the clamp. After removal of the clamp second time, no acute bleeding is noted, we will continue to monitor and reassess the patient. She has had no recurrence. We discussed further treatment. Patient would like to avoid packing which I agree with at htis time. She and her are going to keep clamps on there person. We are sending her rhoe with more Afrin. She was given instructions on how to control bleeding should it recur. I do not believe we should stop anticoagulation at this time. If patient is not able to control bleeding, if this recurs, she will return to the ED. i advised on activites to avoid. We discussed nasal moisture. She uses QD intranasal vasaline. I advised she not apply anything directly while healing, advised she could use spray but no q-tip or other FB in the nose for tthe time being. Return precautions discussed. All of her quesitons and concerns were addressed, she is in agreement with this plan. HPI General Mode of arrival: ambulatory . Date/Time Provider Initiated Documentation: 04/01/22 18:38 . Limitations to Documentation: no limitations . Information obtained by: patient, family () and RN notes reviewed . History of Present Illness 82 year old F presents to the emergency department with the chief complaint of epistaxis, described as moderate, Quality is described as other (no discomfort currently), and is localized to the face. Patient reports no radiation. Patient started experiencing this minute(s) and it has been constant. No relieving factors improve symptom(s), No exacerbating factors reported . Patient notes no other symptoms.. Patient did receive the following treatments prior to arrival, none Related Data Home Medications Medication Instructions Recorded Confirmed insulin detemir U-100 100 unit/mL 50 unit SQ .QHS 12/31/15 04/01/22 subcutaneous solution (Levemir U-100 Insulin) simvastatin 10 mg tablet 10 mg PO DAILY 12/31/15 04/01/22 magnesium oxide 400 mg (241.3 mg 400 mg PO BID #180 tabs 07/15/16 04/01/22 magnesium) tablet amiodarone 200 mg tablet 200 mg PO QNOON #90 tab-caps 09/16/16 04/01/22 lancets 30 gauge (BD Ultra-Fine II 01/06/18 04/01/22 Lancets) turmeric root extract 500 mg 1 tab PO DAILY 05/07/18 04/01/22 capsule levothyroxine 137 mcg tablet 137 mcg PO DAILY 04/24/20 04/01/22 clonidine HCl 0.1 mg tablet 0.1 mg PO QHS 06/23/20 04/01/22 torsemide 10 mg tablet 20 mg PO DAILY #30 tab-caps 06/23/20 04/01/22 hydroxyzine HCl 10 mg tablet 10 mg PO QHS 12/27/21 04/01/22 valsartan 320 mg tablet (Diovan) 160 mg PO DAILY 12/27/21 04/01/22 rivaroxaban 20 mg tablet (Xarelto) 20 mg PO QNOON 04/01/22 04/01/22 amoxicillin 875 mg-potassium 1 tab PO BID #8 tabs 04/02/22 clavulanate 125 mg tablet Previous Rx's Medication Instructions Recorded magnesium oxide 400 mg (241.3 mg 400 mg PO BID #180 tabs 07/15/16 magnesium) tablet amoxicillin 875 mg-potassium 1 tab PO BID #8 tabs 04/02/22 clavulanate 125 mg tablet Allergies Allergy/AdvReac Type Severity Reaction Status Date / Time GONZÁLEZ Inhibitors Allergy Mild Verified 04/02/22 01:56 Sulfa (Sulfonamide Allergy Mild Verified 04/02/22 01:56 Antibiotics) aspirin [From Anacin] AdvReac Intermediate Verified 04/02/22 01:56 caffeine [From Anacin] AdvReac Intermediate Verified 04/02/22 01:56 morphine AdvReac Intermediate Visual Verified 04/02/22 01:56 Disturbances atenolol AdvReac Mild bradycardia Verified 04/02/22 01:56 apixaban [From Eliquis] AdvReac confusion Verified 04/02/22 01:56 diltiazem AdvReac bradycardia Verified 04/02/22 01:56 General Stated Complaint: Epistaxis LIZET: 4 Review of Systems Constitutional Constitutional: Reports as per HPI, Denies fever(s) and Denies headache(s) ENT Ears, Nose, Mouth, and Throat: Reports as per HPI, Denies bleeding gums, Denies change in voice and Denies headache(s) Cardiovascular Cardiovascular: Reports as per HPI, Denies chest pain and Denies dyspnea Respiratory Respiratory: Reports as per HPI, Denies hemoptysis and Denies dyspnea Gastrointestinal Gastrointestinal: Reports as per HPI, Denies melena, Denies hematochezia, Denies nausea and Denies vomiting Genitourinary Genitourinary: Reports as per HPI and Denies hematuria Integumentary/Breasts Skin/Breast: Denies unusual bruising Neurologic Neurologic: Denies headache(s) Hematologic/Lymphatic Hematologic/Lymphatic: Reports as per HPI, Denies easy bleeding and Denies easy bruising PFSH All Active Problems Acute anterior epistaxis (Acute) Acute anterior epistaxis (Acute) Paroxysmal atrial fibrillation (Acute) Diabetes mellitus (Chronic) Vaginal irritation (Acute 01/06/18) 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) Superficial (introital) dyspareunia (Acute 01/06/18) Right elbow pain (Acute 01/06/18) Recurrent UTI (urinary tract infection) (Acute 01/06/18) Osteoarthritis (Acute 01/06/18) Mild obesity (Acute 01/06/18) Left knee pain (Acute 01/06/18) Intractable headache (Acute 01/06/18) Hypothyroidism (Acute 01/06/18) Hypomagnesemia (Acute 01/06/18) Hypertension (Acute 01/06/18) Hyperlipidemia, unspecified (Acute 01/06/18) Elevated liver enzymes (Acute 01/06/18) Edema (Acute 01/06/18) Dyspepsia (Acute 01/06/18) Controlled type 2 diabetes mellitus (Acute 01/06/18) Atrial fibrillation (Acute 01/06/18) Anxiety (Acute 01/06/18) Anticoagulation management encounter (Acute 01/06/18) Social History Smoking/Tobacco Use Status: Never Smoking risk assessment performed?: Yes Alcohol Intake: never Drug use: Never Substance use type: does not use What type of physical activity do you participate in: none Do you feel safe at home: Yes Do you feel safe in your relationship?: Yes Exam Const General: cooperative, healthy appearing, comfortable, no acute distress, well developed and anxious Nutritional Appearance: well nourished and overweight Orientation: alert and awake HENMT Head: normal to inspection and atraumatic General nose exam: external nose normal, no nasal polyps and epistaxis on the right anterior source Mouth: oral mucosae normal Throat: posterior oropharynx normal (no blood posteirorly) Eyes General: appearance normal, both eyes and all related structures Neck Neck: normal visual inspection, full ROM, no lymphadenopathy, no meningeal signs and no lymphadenopathy noted Resp Effort & Inspection: normal respiratory effort, able to speak in complete sentences and no respiratory distress Cardio Rate: regular rate Rhythm: regular rhythm Skin General skin exam: no rashes or lesions noted Neuro General: patient alert, patient awake and patient oriented x3 Cranial Nerves: CN's II-XI intact bilaterally Cognition: normal cognition Speech: speech normal Gait: normal gait Psych Appearance: grossly normal and well kempt Mental Status: mental status grossly normal Speech and Movement: speech and movement normal Course Vital Signs Vital signs: Vital Signs Temperature 35.8 C L 04/01/22 18:37 Pulse 63 04/01/22 18:37 Respiratory Rate 17 04/01/22 18:37 Blood Pressure 128/106 H 04/01/22 18:37 Pulse Oximetry 95 04/01/22 18:37 Temperature 35.8 C L 04/01/22 18:37 Temperature Source Tympanic 04/01/22 18:37 Pulse 63 04/01/22 18:37 Respiratory Rate 17 04/01/22 18:37 Respiratory Effort Non-Labored 04/01/22 18:43 Blood Pressure 128/106 H 04/01/22 18:37 Blood Pressure Position Supine 04/01/22 18:37 Pulse Oximetry 95 04/01/22 18:37 Oxygen Delivery Method Room Air 04/01/22 18:37 Oxygen Flow Rate 0 04/01/22 18:37 Pain Level 0 04/01/22 18:37
[2022-04-01 18:58] VITALS: BP 198/65; PULSE 72; RESP 18; O2SAT 98
== END 2022-04-01 20:32 | disposition home or self-care (01) ==
PROVIDERS: Emergency Provider Physician Assistant; PCP Family Medicine
DX: R04.0 Epistaxis (principal)
CPT/HCPCS: 30901

== ENCOUNTER 2022-04-02 01:44 | Emergency (ER) | payer MEDICARE, SELFPAY ==
[2022-04-02 01:52] VITALS: BP 170/57; PULSE 50; RESP 13; TEMP 36.3; O2SAT 96
--- NOTE | 2022-04-02 02:03 | W.ED.GENAD ---
Discharge Plan Disposition Patient Disposition: HOME Condition: Good Discharge Details Clinical Impression: Acute anterior epistaxis Primary Care Provider: Stanley Le ED Provider: Zaid Dupont Home Meds and New Rx's Prescriptions: New amoxicillin-pot clavulanate 875-125 mg tablet 1 tab PO BID Qty: 8 0RF No Action hydroxyzine HCl 10 mg tablet 10 mg PO QHS clonidine HCl 0.1 mg tablet 0.1 mg PO QHS torsemide 10 mg tablet 20 mg PO DAILY Qty: 30 amiodarone 200 MG tablet 200 mg PO QNOON Qty: 90 Rx Instructions: Take with food. (DME) lancets [BD Ultra-Fine II Lancets] 1 EACH misc 1 ea Miscellaneous PRN simvastatin 10 MG tablet 10 mg PO DAILY Levemir U-100 Insulin 100 UNIT/ML solution 50 unit SQ .QHS valsartan [Diovan] 320 mg tablet 160 mg PO DAILY magnesium oxide 400 MG tablet 400 mg PO BID Qty: 180 2RF Rx Instructions: Dr. Bryant may need to increase your dose. turmeric root extract 500 MG capsule 1 tab PO DAILY levothyroxine 137 mcg tablet 137 mcg PO DAILY Xarelto 20 mg tablet 20 mg PO QNOON Rx Instructions: must administer with evening meal Discharge Instructions Additional Instructions: At this time the nosebleed has stopped. Please leave the packing in for the next 72 hours. Please follow-up closely with your primary care provider to have this removed. Please take the antibiotics as directed to prevent any infection. If you notice any worsening of your symptoms, or any new symptoms such as vomiting, diarrhea, fever, chills, shortness of breath, chest pain, numbness, weakness, or fainting , please return immediately to the emergency department for reevaluation. Please follow up with your primary care provider as soon as possible for reassessment and reevaluation. As always, it was a pleasure participating in your medical care today. Referrals: Stanley Le MD [Primary Care Provider] - Medical Decision Making This is a pleasant 82-year-old female with a past medical history of atrial fibrillation currently on Xarelto, who presents today for nosebleed. She was here earlier this evening and left at about 8 PM after the nosebleed had after compression on to the anterior nasal area for an extended period. Evaluation at that time showed evidence of small bleed at Elijah back plexus. It had resolved and she was discharged home. Unfortunately she had 2 or 3 episodes subsequently throughout the evening, and comes again for reassessment. She denies any syncope. No nose pain. No chest pain. No other complaints at this time. Physical exam demonstrates a small amount of bleeding from Kiesselbach's plexus on the right nose. Lidocaine with epinephrine was used to and this did not stop the bleeding. We discussed risks and benefits of packing, and patient has elected to proceed with packing. Rhino Rocket was cut down to be an appropriate size for the anterior bleed, was then placed in the nose and demonstrated good tamponade of the bleeding with no complications. Patient tolerated this well. Patient was observed, and she showed no signs of rebleeding. She will be given dose of Augmentin here, and a prescription for home to prevent any subsequent infection secondary to use of Rhino Rocket. Discussed red flags which to return. I have extensively reviewed the treatment plan and discharge instructions with the patient and their family. I have addressed all patient concerns at this time. The patient and family was made aware of what symptoms to monitor for that would warrant a return to the emergency department. Discussed the plan with the patient and family, they demonstrate verbal understanding and agreement with our assessment and plan at this time. The documentation in this chart was dictated using [employer] dictation software. Please excuse any dictation errors. HPI General Date/Time Provider Initiated Documentation: 04/02/22 01:44. HPI Narrative: This is a pleasant 82-year-old female with a past medical history of atrial fibrillation currently on Xarelto, who presents today for nosebleed. She was here earlier this evening and left at about 8 PM after the nosebleed had after compression on to the anterior nasal area for an extended period. Evaluation at that time showed evidence of small bleed at Elijah back plexus. It had resolved and she was discharged home. Unfortunately she had 2 or 3 episodes subsequently throughout the evening, and comes again for reassessment. She denies any syncope. No nose pain. No chest pain. No other complaints at this time. Related Data Home Medications Medication Instructions Recorded Confirmed insulin detemir U-100 100 unit/mL 50 unit SQ .QHS 12/31/15 04/01/22 subcutaneous solution (Levemir U-100 Insulin) simvastatin 10 mg tablet 10 mg PO DAILY 12/31/15 04/01/22 magnesium oxide 400 mg (241.3 mg 400 mg PO BID #180 tabs 07/15/16 04/01/22 magnesium) tablet amiodarone 200 mg tablet 200 mg PO QNOON #90 tab-caps 09/16/16 04/01/22 lancets 30 gauge (BD Ultra-Fine II 01/06/18 04/01/22 Lancets) turmeric root extract 500 mg 1 tab PO DAILY 05/07/18 04/01/22 capsule levothyroxine 137 mcg tablet 137 mcg PO DAILY 04/24/20 04/01/22 clonidine HCl 0.1 mg tablet 0.1 mg PO QHS 06/23/20 04/01/22 torsemide 10 mg tablet 20 mg PO DAILY #30 tab-caps 06/23/20 04/01/22 hydroxyzine HCl 10 mg tablet 10 mg PO QHS 12/27/21 04/01/22 valsartan 320 mg tablet (Diovan) 160 mg PO DAILY 12/27/21 04/01/22 rivaroxaban 20 mg tablet (Xarelto) 20 mg PO QNOON 04/01/22 04/01/22 amoxicillin 875 mg-potassium 1 tab PO BID #8 tabs 04/02/22 clavulanate 125 mg tablet Previous Rx's Medication Instructions Recorded magnesium oxide 400 mg (241.3 mg 400 mg PO BID #180 tabs 07/15/16 magnesium) tablet amoxicillin 875 mg-potassium 1 tab PO BID #8 tabs 04/02/22 clavulanate 125 mg tablet Allergies Allergy/AdvReac Type Severity Reaction Status Date / Time GONZÁLEZ Inhibitors Allergy Mild Verified 04/02/22 01:56 Sulfa (Sulfonamide Allergy Mild Verified 04/02/22 01:56 Antibiotics) aspirin [From Anacin] AdvReac Intermediate Verified 04/02/22 01:56 caffeine [From Anacin] AdvReac Intermediate Verified 04/02/22 01:56 morphine AdvReac Intermediate Visual Verified 04/02/22 01:56 Disturbances atenolol AdvReac Mild bradycardia Verified 04/02/22 01:56 apixaban [From Eliquis] AdvReac confusion Verified 04/02/22 01:56 diltiazem AdvReac bradycardia Verified 04/02/22 01:56 General Stated Complaint: Epistaxis LIZET: 4 Review of Systems All systems reviewed & are unremarkable except as noted in HPI and below PFSH All Active Problems Acute anterior epistaxis (Acute) Acute anterior epistaxis (Acute) Paroxysmal atrial fibrillation (Acute) Diabetes mellitus (Chronic) Vaginal irritation (Acute 01/06/18) 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) Superficial (introital) dyspareunia (Acute 01/06/18) Right elbow pain (Acute 01/06/18) Recurrent UTI (urinary tract infection) (Acute 01/06/18) Osteoarthritis (Acute 01/06/18) Mild obesity (Acute 01/06/18) Left knee pain (Acute 01/06/18) Intractable headache (Acute 01/06/18) Hypothyroidism (Acute 01/06/18) Hypomagnesemia (Acute 01/06/18) Hypertension (Acute 01/06/18) Hyperlipidemia, unspecified (Acute 01/06/18) Elevated liver enzymes (Acute 01/06/18) Edema (Acute 01/06/18) Dyspepsia (Acute 01/06/18) Controlled type 2 diabetes mellitus (Acute 01/06/18) Atrial fibrillation (Acute 01/06/18) Anxiety (Acute 01/06/18) Anticoagulation management encounter (Acute 01/06/18) Social History Smoking/Tobacco Use Status: Never Smoking risk assessment performed?: Yes Alcohol Intake: never Drug use: Never Substance use type: does not use What type of physical activity do you participate in: none Do you feel safe at home: Yes Do you feel safe in your relationship?: Yes Exam Narrative Exam Narrative: 1.Const: Well-nourished, Well-developed, appearing stated age 2.Eyes: PERRL, no conjunctival injection, and symmetrical lids. 3.ENT: Atraumatic external nose and ears. Moist MM. Neck: Symmetric, trachea midline, No thyromegaly. Patient's right nasal passageway demonstrates evidence of mild bleeding and oozing from the area of Elijah box plexus. No pulsatile hemorrhage. After the area was blown there does not appear to be any bleeding from the posterior component of the nasal passageway. Left nares unremarkable 4.CVS: +S1/S2, No murmurs or gallops. Peripheral pulses 2+ and equal in all extremities. Brisk capillary refill in all extremities. 5.RESP: Unlabored respiratory effort. Clear to auscultation bilaterally. No wheezes rales or rhonchi 6.GI: Soft, Nontender/Nondistended, No hepatosplenomegaly. No guarding or rebound. 7.MSK: Normocephalic/Atraumatic, Extremities w/o deformity or ttp No cyanosis or clubbing, Normal movement of all extremities 8.Skin: Warm, Dry. No rashes or lesions. 9.Neuro: buckle inspector II-XII grossly intact. Sensation grossly intact, no focal neurologic deficits. 10.Psych: (AAO) x3. Appropriate mood and affect Course Vital Signs Vital signs: Respiratory Effort Non-Labored 04/02/22 01:57 Procedures Epistaxis Control Time Out Performed: Yes Nostril: right Nose Prepped With: lidocaine (with epi) Direct Inspection: yes Clots Removed by: blowing nose Cautery Used: none Device Inserted: nasal tampon Device Size: 4 Patient Tolerated Procedure: well and no complications
== END 2022-04-02 02:17 | disposition home or self-care (01) ==
PROVIDERS: Emergency Provider Student in an Organized Health Care Education/Training Program; PCP Family Medicine
DX: R04.0 Epistaxis (principal); I48.91 Unspecified atrial fibrillation; Z79.01 Long term (current) use of anticoagulants
CPT/HCPCS: 30903

== ENCOUNTER 2022-04-02 11:38 | Emergency (ER) | payer MEDICARE, SELFPAY ==
[2022-04-02 11:40] VITALS: BP 227/64; PULSE 56; RESP 18; TEMP 36; O2SAT 96
--- NOTE | 2022-04-02 11:42 | ED.GENADUL_ITS ---
Discharge Plan Disposition Patient Disposition: HOME Condition: Stable Discharge Details Clinical Impression: Epistaxis Primary Care Provider: Stanley Le ED Provider: Mini Gaspar Home Meds and New Rx's Prescriptions: Continued hydroxyzine HCl 10 mg tablet 10 mg PO QHS clonidine HCl 0.1 mg tablet 0.1 mg PO QHS torsemide 10 mg tablet 20 mg PO DAILY Qty: 30 amiodarone 200 MG tablet 200 mg PO QNOON Qty: 90 Rx Instructions: Take with food. (DME) lancets [BD Ultra-Fine II Lancets] 1 EACH misc 1 ea Miscellaneous PRN simvastatin 10 MG tablet 10 mg PO DAILY Levemir U-100 Insulin 100 UNIT/ML solution 50 unit SQ .QHS valsartan [Diovan] 320 mg tablet 160 mg PO DAILY magnesium oxide 400 MG tablet 400 mg PO BID Qty: 180 2RF Rx Instructions: Dr. Bryant may need to increase your dose. turmeric root extract 500 MG capsule 1 tab PO DAILY levothyroxine 137 mcg tablet 137 mcg PO DAILY Xarelto 20 mg tablet 20 mg PO QNOON Rx Instructions: must administer with evening meal amoxicillin-pot clavulanate 875-125 mg tablet 1 tab PO BID Qty: 8 0RF Discharge Instructions Instructions: Nosebleed (ED) Additional Instructions: It is recommended to keep the nasal tampon in place until follow-up with your primary care doctor on or Friday for removal. Follow-up with ear nose and throat Dr. Daniel for evaluation of your nosebleeds as needed. Sneeze with your mouth open and avoid blowing your nose. Return immediately to the emergency department if you develop any worsening or new concerning symptoms. Discharge Data Discharge Date/Time-TO BE ENTERED AT DEPARTURE: 04/02/22 13:12 Discharge Physician: Mini Gaspar Medical Decision Making 82-year-old female 82-year-old female with history of paroxysmal atrial fibrillation on Xarelto, obesity, diabetes, hypertension, hyperlipidemia, hypothyroidism seen here twice yesterday for nosebleed with Rhino Rocket placed on second visit earlier this morning presents for oozing around Rhino Rocket after yawning 3 hours ago at home. Bleeding has now improved. Blood pressure hypertensive at 227/64. She appears comfortable and nontoxic. She denies complaints of dizziness. Rhino Rocket is inflated within right nares and there is very minimal oozing on the side behind it. There is no blood in the oropharnx. Case discussed with Dr. Daniel who recommends keeping Rhino Rocket in place and if the bleeding has improved, can discharge to home with plan for follow-up outpatient -- can consider inflating Rhino Rocket further if patient can tolerate. Inspection of the nasal packing reveals that there is not an inflatable balloon. Bleeding appears to have mostly stopped and with some very minimal oozing. Patient feels comfortable with plan with keeping Rhino Rocket in place at this time with plan for removal by her PCP office this or Friday. Repeat BP 158/70. Usual and customary return precautions given prior to discharge. Medical Records Medical records reviewed: Yes I reviewed the patient's medical records. HPI General Mode of arrival: ambulatory . Date/Time Provider Initiated Documentation: 04/02/22 11:39 . Limitations to Documentation: no limitations . Information obtained by: patient . HPI Narrative: Patient is an 82-year-old female with a history of paroxysmal atrial fibrillation on Xarelto, diabetes, obesity, hypertension, hyperlipidemia, hypothyroidism who was seen here twice yesterday for nosebleed which had stopped with Afrin and clamp on initial visit and then required placement of Rhino Rocket on second visit at 2 AM this morning presents for oozing around Rhino Rocket since 9 AM after yawning. She admits to mild headache but denies any chest pain, shortness of breath or dizziness. She states the bleeding has somewhat leveled off and is now just slightly oozing around the yaritza rocket since then. Related Data Home Medications Medication Instructions Recorded Confirmed insulin detemir U-100 100 unit/mL 50 unit SQ .QHS 12/31/15 04/02/22 subcutaneous solution (Levemir U-100 Insulin) simvastatin 10 mg tablet 10 mg PO DAILY 12/31/15 04/02/22 magnesium oxide 400 mg (241.3 mg 400 mg PO BID #180 tabs 07/15/16 04/02/22 magnesium) tablet amiodarone 200 mg tablet 200 mg PO QNOON #90 tab-caps 09/16/16 04/02/22 lancets 30 gauge (BD Ultra-Fine II 01/06/18 04/02/22 Lancets) turmeric root extract 500 mg 1 tab PO DAILY 05/07/18 04/02/22 capsule levothyroxine 137 mcg tablet 137 mcg PO DAILY 04/24/20 04/02/22 clonidine HCl 0.1 mg tablet 0.1 mg PO QHS 06/23/20 04/02/22 torsemide 10 mg tablet 20 mg PO DAILY #30 tab-caps 06/23/20 04/02/22 hydroxyzine HCl 10 mg tablet 10 mg PO QHS 12/27/21 04/02/22 valsartan 320 mg tablet (Diovan) 160 mg PO DAILY 12/27/21 04/02/22 rivaroxaban 20 mg tablet (Xarelto) 20 mg PO QNOON 04/01/22 04/02/22 amoxicillin 875 mg-potassium 1 tab PO BID #8 tabs 04/02/22 04/02/22 clavulanate 125 mg tablet Previous Rx's Medication Instructions Recorded magnesium oxide 400 mg (241.3 mg 400 mg PO BID #180 tabs 07/15/16 magnesium) tablet amoxicillin 875 mg-potassium 1 tab PO BID #8 tabs 04/02/22 clavulanate 125 mg tablet Allergies Allergy/AdvReac Type Severity Reaction Status Date / Time GONZÁLEZ Inhibitors Allergy Mild Verified 04/02/22 11:45 Sulfa (Sulfonamide Allergy Mild Verified 04/02/22 11:45 Antibiotics) aspirin [From Anacin] AdvReac Intermediate Verified 04/02/22 11:45 caffeine [From Anacin] AdvReac Intermediate Verified 04/02/22 11:45 morphine AdvReac Intermediate Visual Verified 04/02/22 11:45 Disturbances atenolol AdvReac Mild bradycardia Verified 04/02/22 11:45 apixaban [From Eliquis] AdvReac confusion Verified 04/02/22 11:45 diltiazem AdvReac bradycardia Verified 04/02/22 11:45 General Stated Complaint: Epistaxis LIZET: 4 Review of Systems All systems reviewed & are unremarkable except as noted in HPI and below Constitutional Constitutional: Reports as per HPI, Denies chills and Denies fever(s) Eyes Eyes: Denies blurry vision ENT Ears, Nose, Mouth, and Throat: Denies dizziness, Reports epistaxis, Denies sore throat and Denies throat swelling Cardiovascular Cardiovascular: Denies chest pain and Denies dyspnea Respiratory Respiratory: Denies cough and Denies dyspnea Gastrointestinal Gastrointestinal: Denies abdominal pain, Denies diarrhea and Denies vomiting Genitourinary Genitourinary: Denies hematuria and Denies dysuria Musculoskeletal Musculoskeletal: Denies back pain and Denies numbness Integumentary/Breasts Skin/Breast: Denies lesions and Denies rash Neurologic Neurologic: Denies dizziness, Denies localized weakness and Denies numbness Allergic/Immunologic Allergic/Immunologic: Denies throat swelling PFSH All Active Problems (Updated 04/02/22 @ 12:25 by Mini Gaspar DO) Acute anterior epistaxis (Acute) Acute anterior epistaxis (Acute) Epistaxis (Acute) Paroxysmal atrial fibrillation (Acute) Diabetes mellitus (Chronic) Vaginal irritation (Acute 01/06/18) 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) Superficial (introital) dyspareunia (Acute 01/06/18) Right elbow pain (Acute 01/06/18) Recurrent UTI (urinary tract infection) (Acute 01/06/18) Osteoarthritis (Acute 01/06/18) Mild obesity (Acute 01/06/18) Left knee pain (Acute 01/06/18) Intractable headache (Acute 01/06/18) Hypothyroidism (Acute 01/06/18) Hypomagnesemia (Acute 01/06/18) Hypertension (Acute 01/06/18) Hyperlipidemia, unspecified (Acute 01/06/18) Elevated liver enzymes (Acute 01/06/18) Edema (Acute 01/06/18) Dyspepsia (Acute 01/06/18) Controlled type 2 diabetes mellitus (Acute 01/06/18) Atrial fibrillation (Acute 01/06/18) Anxiety (Acute 01/06/18) Anticoagulation management encounter (Acute 01/06/18) Social History Smoking/Tobacco Use Status: Never Smoking risk assessment performed?: Yes Alcohol Intake: never Drug use: Never Substance use type: does not use What type of physical activity do you participate in: none Do you feel safe at home: Yes Do you feel safe in your relationship?: Yes Exam Const General: cooperative and no acute distress Orientation: alert, awake and oriented x3 HENMT Head: normal to inspection Ears: hearing grossly normal bilaterally Face and sinus: normal facial exam Mouth: oral mucosae normal Other: Inflated Rhino Rocket noted in place in right nares. There is very minimal oozing of blood behind rhino rocket. No blood in oropharynx. Eyes General: appearance normal, both eyes and all related structures Neck Neck: normal visual inspection Resp Effort & Inspection: normal respiratory effort and able to speak in complete sentences Cardio Rate: regular rate Skin General skin exam: no rashes or lesions noted Neuro General: patient alert, patient awake and patient oriented x3 Motor: muscle tone normal throughout Extrem General: normal to inspection and full ROM Psych Appearance: grossly normal Affect: normal affect
[2022-04-02 12:28] VITALS: BP 155/85
[2022-04-02 13:09] VITALS: BP 158/70; PULSE 60; RESP 18; TEMP 36.5; O2SAT 96
== END 2022-04-02 13:12 | disposition home or self-care (01) ==
PROVIDERS: Emergency Provider Physician Assistant; PCP Family Medicine
DX: R04.0 Epistaxis (principal); I48.0 Paroxysmal atrial fibrillation; Z79.01 Long term (current) use of anticoagulants; I10 Essential (primary) hypertension
CPT/HCPCS: 99281

== ENCOUNTER 2022-06-27 08:56 | Outpatient (CLI) | payer MEDICARE, SELFPAY ==
--- NOTE | 2022-06-27 08:45 | RT.EKG_ITS ---
APPROVED REPORT Exam: Resting ECG Reason for Exam: PAF Patient Location: O HR:51 bpm ECG Measurements Heart Rate 51 AXIS NM 239 P 14 QRSd 122 QRS 18 QT 510 T 10 QTc 470 Conclusion Sinus rhythm...normal P axis, V-rate 50- 99 Prolonged NM interval...NM >220, V-rate 50- 90 Nonspecific intraventricular conduction delay...QRSd >115mS, not LBBB/RBBB
== END 2022-06-27 08:57 | disposition home or self-care (01) ==
LOC: DI.CARD 08:57
PROVIDERS: PCP Family Medicine; Visit Provider Internal Medicine Cardiovascular Disease
DX: I48.0 Paroxysmal atrial fibrillation (principal); I49.5 Sick sinus syndrome
CPT/HCPCS: 93010

== ENCOUNTER → 2022-06-27 11:08 | Outpatient (BNVA) | payer MEDICARE, SELFPAY | PROVIDERS: PCP Family Medicine; Referring Provider Family Medicine; Visit Provider Internal Medicine Cardiovascular Disease | DX: I48.0 Paroxysmal atrial fibrillation (principal); I10 Essential (primary) hypertension | CPT/HCPCS: 93005; 99213 ==

== ENCOUNTER → 2023-03-17 09:47 | Outpatient (BNVA) | payer MEDICARE, SELFPAY | PROVIDERS: PCP Family Medicine; Referring Provider Family Medicine; Visit Provider Internal Medicine Cardiovascular Disease | DX: I48.0 Paroxysmal atrial fibrillation (principal); I10 Essential (primary) hypertension | CPT/HCPCS: 99213 ==

== ENCOUNTER 2023-03-27 16:06 | Outpatient (REF) | payer MEDICARE, SELFPAY ==
[2023-03-27 14:20] LABS: HCT 37.2 % (36.0-46.0); HGB 11.8 g/dL (11.2-15.7); MCH 26.8 pg (27.0-33.0); MCHC 31.7 % (32.0-36.0); MCV 85 fL (80-95); MPV 10.4 fL (8.0-11.0); Platelet Count 311 10^3/uL (130-400); WBC 7.84 10^3/uL (4.4-10.8)
[2023-03-27 14:46] LABS: ALT 25 U/L (14-59); AST 25 U/L (15-37); Albumin 3.6 g/dL (3.4-5.0); Alkaline Phosphatase 99 U/L (46-116); Anion Gap 8.9 mmol/L (3-11); BUN 34 mg/dL (7-18); Bilirubin, Total 0.3 mg/dL (0.2-1.0); CO2 28.1 mmol/L (21.0-32.0); CREATININE 1.2 mg/dL (0.55-1.02); Calcium 9.2 mg/dL (8.5-10.1); Chloride 105 mmol/L (98-107); Estimated GFR 45.19 (mL/min/1.73m2); Glucose 164 mg/dL (74-106); Potassium 4.6 mmol/L (3.5-5.1); Sodium 142 mmol/L (136-145); TSH (W/Ref FT4) 2.78 uIU/mL (0.36-3.74); Total Protein 8.1 g/dL (6.4-8.2)
== END 2023-03-27 16:07 | disposition home or self-care (01) ==
LOC: NCHCN 16:06
PROVIDERS: PCP Family Medicine; Visit Provider Family Medicine
DX: I48.0 Paroxysmal atrial fibrillation (principal); E11.9 Type 2 diabetes mellitus without complications; I10 Essential (primary) hypertension; E03.9 Hypothyroidism, unspecified
CPT/HCPCS: 80053; 85027; 84443

== ENCOUNTER 2023-08-20 15:27 | Outpatient (REF) | payer MEDICARE, SELFPAY ==
[2023-08-20 21:17] LABS: HCT 38.3 % (36.0-46.0); MCH 27.5 pg (27.0-33.0); MCHC 31.3 % (32.0-36.0); MCV 88 fL (80-95); MPV 11.2 fL (8.0-11.0); Platelet Count 299 10^3/uL (130-400); RBC 4.37 10^6/uL (3.93-5.22); RDW 16.3 % (11.7-14.6); RDW-SD 52.5 fL; WBC 9.01 10^3/uL (4.4-10.8)
[2023-08-20 21:34] LABS: ALT 24 U/L (14-59); AST 22 U/L (15-37); Albumin 3.6 g/dL (3.4-5.0); Alkaline Phosphatase 124 U/L (46-116); Anion Gap 10.3 mmol/L (3-11); BUN 40 mg/dL (7-18); Bilirubin, Total 0.3 mg/dL (0.2-1.0); CO2 25.7 mmol/L (21.0-32.0); CREATININE 1.2 mg/dL (0.55-1.02); Calcium 9.4 mg/dL (8.5-10.1); Chloride 107 mmol/L (98-107); Estimated GFR 45.19 (mL/min/1.73m2); Glucose 175 mg/dL (74-106); Potassium 4.8 mmol/L (3.5-5.1); Sodium 143 mmol/L (136-145); TSH (W/Ref FT4) 2.32 uIU/mL (0.36-3.74); Total Protein 7.8 g/dL (6.4-8.2)
== END 2023-08-20 15:28 | disposition home or self-care (01) ==
LOC: NCHCN 15:27
PROVIDERS: PCP Family Medicine; Visit Provider Family Medicine
DX: R60.0 Localized edema (principal)
CPT/HCPCS: 80053; 85027; 84443

== ENCOUNTER → 2023-12-15 09:27 | Outpatient (BNVA) | payer MEDICARE, SELFPAY | PROVIDERS: PCP Family Medicine; Visit Provider Internal Medicine Cardiovascular Disease | DX: I49.5 Sick sinus syndrome (principal); I10 Essential (primary) hypertension; I48.0 Paroxysmal atrial fibrillation; E03.9 Hypothyroidism, unspecified | CPT/HCPCS: 99213 ==

== ENCOUNTER 2024-04-01 16:43 | Outpatient (REF) | payer MEDICARE, SELFPAY ==
[2024-04-01 21:20] LABS: ALT 26 U/L (14-59); AST 22 U/L (15-37); Albumin 3.7 g/dL (3.4-5.0); Alkaline Phosphatase 118 U/L (46-116); Anion Gap 6.9 mmol/L (3-11); BUN 40 mg/dL (7-18); Bilirubin, Total 0.32 mg/dL (0.2-1.0); CO2 29.1 mmol/L (21.0-32.0); CREATININE 1.2 mg/dL (0.55-1.02); Chloride 105 mmol/L (98-107); Estimated GFR 44.91 (mL/min/1.73m2); Glucose 138 mg/dL (74-106); Potassium 4.6 mmol/L (3.5-5.1); Sodium 141 mmol/L (136-145); TSH (W/Ref FT4) 7.22 uIU/mL (0.36-3.74); Total Protein 7.5 g/dL (6.4-8.2)
== END 2024-04-01 16:44 | disposition home or self-care (01) ==
LOC: NCHCN 16:43
PROVIDERS: PCP Family Medicine; Visit Provider Family Medicine
DX: I48.0 Paroxysmal atrial fibrillation (principal)
CPT/HCPCS: 80053; 84439; 84443

== ENCOUNTER 2024-04-02 15:39 | Outpatient (REF) | payer MEDICARE, SELFPAY | END 2024-04-02 15:40 | disposition home or self-care (01) | LOC: NCHCN 15:39 | PROVIDERS: PCP Family Medicine; Visit Provider Family Medicine | DX: E11.9 Type 2 diabetes mellitus without complications (principal) | CPT/HCPCS: 82043; 82570 ==

== ENCOUNTER 2024-05-15 14:27 | Emergency (ER) | payer MEDICARE, SELFPAY ==
[2024-05-15 14:36] VITALS: BP 154/54; PULSE 55; RESP 18; TEMP 36; O2SAT 96
--- NOTE | 2024-05-15 14:45 | RT.EKG_ITS ---
APPROVED REPORT Exam: Resting ECG Reason for Exam: sob Patient Location: E HR:50 bpm ECG Measurements Heart Rate 50 AXIS VT [id number] P [id number] QRSd 111 QRS 17 QT 458 T 28 QTc 420 Conclusion A-flutter/fibrillation w/ complete AV block...A-rate>220, V-rate< 60, AV dissoc Low voltage, precordial leads...precordial leads <1.0mV regular narrow complex bradycardia, sawtooth waves in V1 concerning for flutter
--- NOTE | 2024-05-15 16:23 | ED.GENADUL_ITS ---
Discharge Plan Disposition Patient Disposition: Home Condition: Stable Discharge Details Clinical Impression: Peripheral edema Primary Care Provider: Stanley Le ED Provider: Zaid Gallegos Home Meds and New Rx's Prescriptions: Continued clonidine HCl 0.1 mg tablet 0.1 mg PO QHS torsemide 10 mg tablet 10 mg PO DAILY Qty: 30 amiodarone 200 MG tablet 200 mg PO QNOON Qty: 90 Rx Instructions: Take with food. (DME) lancets [BD Ultra-Fine II Lancets] 1 EACH misc 1 ea Miscellaneous PRN simvastatin 10 MG tablet 10 mg PO DAILY Levemir U-100 Insulin 100 UNIT/ML solution 50 unit SQ .QHS valsartan [Diovan] 320 mg tablet 160 mg PO DAILY magnesium oxide 400 MG tablet 400 mg PO BID Qty: 180 2RF Rx Instructions: Dr. Bryant may need to increase your dose. turmeric root extract 500 MG capsule 1 tab PO DAILY levothyroxine 137 mcg tablet 137 mcg PO DAILY Xarelto 20 mg tablet 20 mg PO QNOON Rx Instructions: must administer with evening meal Discharge Instructions Instructions: Swelling, Heart Failure ED, Echocardiogram Additional Instructions: You were seen in the emergency department for your increasing peripheral edema, you likely are having some element of congestive heart failure due to atrial fibrillation. I am going to arrange for you to have an echocardiogram and follow-up with your primary care provider and our cardiology department. In the meantime while you wait for this to be scheduled please take a double dose of your torsemide for the next 3 to 5 days and note your weight each day and note any swelling increasing or decreasing over this time. Please watch for signs of dehydration when you take extra diuretics. Please return to the emergency department for any chest pain, shortness of breath that is worsening, any fevers or other emergent concerns. Referrals: [facility] [Provider Group] Stanley Le MD [Primary Care Provider] - Discharge Data Discharge Date/Time-TO BE ENTERED AT DEPARTURE: 05/15/24 18:13 HPI General Date/Time Provider Initiated Documentation: 05/15/24 15:30 . HPI Narrative: 84 year-old female presents to ED today by POV/ambulating with her son with a chief complaint of progressing shortness of breath over 1 month- history of atrial fibrillation. Quality described as mild shortness of breath, worse when laying flat lately, noticing increased swelling, no radiation to chest pain, cough, fever, nausea/vomiting, bowel/urinary changes, endorses belly and leg swelling, denies confusion or altered mentation. Severity is described as moderate. Palliating factors include nothing attempted. Provoking factors include nothing specific. Events leading up to the incident/Associated Symptoms: Patient denies known CHF, does take a diuretic of torsemide QD. Patient is anticoagulated. Related Data Home Medications ?Medication ?Instructions ?Recorded ?Confirmed insulin detemir U-100 100 unit/mL 50 unit SQ .QHS 12/31/15 12/15/23 subcutaneous solution (Levemir U-100 Insulin) simvastatin 10 mg tablet 10 mg PO DAILY 12/31/15 12/15/23 magnesium oxide 400 mg (241.3 mg 400 mg PO BID #180 tabs 07/15/16 12/15/23 magnesium) tablet amiodarone 200 mg tablet 200 mg PO QNOON #90 tab-caps 09/16/16 12/15/23 lancets 30 gauge (BD Ultra-Fine II 01/06/18 12/15/23 Lancets) turmeric root extract 500 mg 1 tab PO DAILY 05/07/18 12/15/23 capsule levothyroxine 137 mcg tablet 137 mcg PO DAILY 04/24/20 12/15/23 clonidine HCl 0.1 mg tablet 0.1 mg PO QHS 06/23/20 12/15/23 valsartan 320 mg tablet (Diovan) 160 mg PO DAILY 12/27/21 12/15/23 rivaroxaban 20 mg tablet (Xarelto) 20 mg PO QNOON 04/01/22 12/15/23 torsemide 10 mg tablet 10 mg PO DAILY #30 tab-caps 03/17/23 12/15/23 Previous Rx's ?Medication ?Instructions ?Recorded magnesium oxide 400 mg (241.3 mg 400 mg PO BID #180 tabs 07/15/16 magnesium) tablet Allergies Allergy/AdvReac Type Severity Reaction Status Date / Time GONZÁLEZ Inhibitors Allergy Mild Other (See Verified 05/15/24 14:39 Comment) Sulfa (Sulfonamide Allergy Mild Other (See Verified 05/15/24 14:39 Antibiotics) Comment) aspirin (From Anacin) AdvReac Intermediate Other (See Verified 05/15/24 14:39 Comment) caffeine (From Anacin) AdvReac Intermediate Other (See Verified 05/15/24 14:39 Comment) morphine AdvReac Intermediate Visual Verified 05/15/24 14:39 Disturbances atenolol AdvReac Mild bradycardia Verified 05/15/24 14:39 apixaban (From Eliquis) AdvReac confusion Verified 05/15/24 14:39 diltiazem AdvReac bradycardia Verified 05/15/24 14:39 General Stated Complaint: SOB LIZET: 3 Review of Systems All systems reviewed & are unremarkable except as noted in HPI and below Exam Narrative Exam Narrative: GENERAL APPEARANCE: Baseline severe obesity, non-toxic, awake and alert, atraumatic, no acute distress. SKIN: Warm, pink, dry, intact, without rashes/lesions/ulcerations. HEAD: Normocephalic, atraumatic, normal hair distribution for gender/age. EYES: Normal conjunctiva, no exudates on lids/lashes. ENT: Nares patent, no circumoral cyanosis, no facial swelling NECK: Supple, trachea midline, painless cervical ROM. LUNGS/CHEST: Lungs CTA bilaterally-no overt Rales at bases, no wheezing, non-l abored respirations, normal A/P diameter, symmetrical expansion, no chest wall deformity HEART (CV/PV): Regular rate and rhythm without murmur, 2+ peripheral edema without skin changes, no JVD. ABDOMEN: Soft, distended, no guarding, no ascites, no tenderness MSK: Normal ROM, no swelling/deformity to bilateral UEs or LEs, moving all extremities without weakness, no cyanosis, spine midline without tenderness, normal curvature. NEURO: Mental Status AAOx4 - alert to person, place, time, events No facial droop, no forehead involvement. Motor: No focal weakness - strength 5/5 in bilateral UEs and LEs, proximal and distal, symmetric. Sensory: sensation intact to light touch globally. Gait normal: patient ambulated without ataxia into ED room. PSYCH: euthymic, cooperative, pleasant, appropriate speech Course Vital Signs Vital signs: Vital Signs Temperature 36.0 C L 05/15/24 14:36 Pulse 55 L 05/15/24 14:36 Respiratory Rate 18 05/15/24 14:36 Blood Pressure 154/54 H 05/15/24 14:36 Pulse Oximetry 96 05/15/24 14:36 Temperature 36.0 C L 05/15/24 14:36 Pulse 55 L 05/15/24 14:36 Respiratory Rate 18 05/15/24 14:36 Blood Pressure 154/54 H 05/15/24 14:36 Pulse Oximetry 96 05/15/24 14:36 Oxygen Delivery Method Room Air 05/15/24 14:36 Oxygen Flow Rate 0 05/15/24 14:36 Medical Decision Making This dictation utilizes [id number] dictation software and may contain unedited grammatical errors. 84 year-old female presents to ED today by POV/ambulating with her son with a chief complaint of progressing shortness of breath over 1 month- history of atrial fibrillation. Quality described as mild shortness of breath, worse when laying flat lately, noticing increased swelling, no radiation to chest pain, cough, fever, nausea/vomiting, bowel/urinary changes, endorses belly and leg swelling, denies confusion or altered mentation. Severity is described as moderate. Palliating factors include nothing attempted. Provoking factors include nothing specific. Events leading up to the incident/Associated Symptoms: Patient denies known CHF, does take a diuretic of torsemide QD. Patients' medical history: Paroxysmal atrial fibrillation, diabetes mellitus, tachybradycardia syndrome, hypertension, hyperlipidemia. Family and social history: noncontributory. Pertinent exam findings / vital signs include distended abdomen and peripheral edema, no rales at bases, no respiratory distress, no hypoxia. Differential / pathologies of concern include edema, CHF, not DVT, not PE. Diagnostic studies of: -CBC, CMP, VBG, lactate, procalcitonin, lipase, troponin I, BNP, EKG, x-ray chest. -CBC is unremarkable, has baseline anemia -Lactate and procalcitonin negative -Troponin negative with reliable onset -BNP mildly elevated -369 -CMP shows a mild BRIDGET 1.4 which has been present in the past -Lipase negative -EKG shows rate controlled a flutter/fib, normal axis, no ST deviations of ischemia, normal intervals -CXR without pulmonary edema Interventions of: -No acute interventions, recommending extra dosings of diuretics for 3 to 5 days with reevaluation by PCP or return to ED for worsening. ED Course/Assessment/Plan: 84-year-old female presents with shortness of breath progressing for 1 month, having to use extra pillows at night and worse when she is laying flat, she has a history of atrial fibrillation and is anticoagulated, denies any chest pain, does take a diuretic for kidney related issues. I counseled the patient on likely symptoms of persistent A-fib with history of paroxysmal A-fib with adequate treatment with anticoagulants, likely contributing to some element of increasing edema and heart failure, she has no hypoxia or respiratory distress, I did discuss with her taking a double dose of her torsemide for 3 to 5 days with evaluation and careful monitoring of her weight and edema status at home before following up with primary care, I did order her an outpatient echo to be scheduled in 1 to 2 weeks with strict return criteria for any worsening respiratory status, chest pain, near syncope or dizziness. Findings not consistent with pneumonia, infection, renal failure, overt severe CHF with hypoxia. Disposition of peripheral edema. Patient verbalized understanding of the plan and return to ED criteria and engaged in shared decision making. Medical Records Medical records reviewed: Yes I reviewed the patient's medical records. Imaging Data Radiologic Study: Attestation: I personally reviewed and interpreted this imaging study as follows: Imaging: X-Ray Radiologist's impression: EXAM: XR CHEST 2V PA LATERAL CLINICAL HISTORY: SOB x1 month, anasarca. TECHNIQUE: 2D digital imaging was performed. COMPARISON: CR XR PORTABLE CHEST AP from 04/24/2020 FINDINGS: 2 views: Heart size is normal. The mediastinum is not widened. There are no confluent infiltrates nor pleural effusions. No pulmonary edema. Platelike atelectasis is noted projected over the anterior heart shadow on the lateral view, not visible on the frontal view. IMPRESSION: Platelike atelectasis in what is either right middle lobe or lingular segment of the left lung. No confluent infiltrates. No pulmonary edema. No pleural effusions. Lab Data Lab results reviewed: Yes I reviewed the patient's lab results. Labs: Laboratory Tests Range/Units 05/15/24 05/15/24 16:53 16:53 WBC (4.4-10.8) 10^3/uL 8.29 RBC (3.93-5.22) 10^6/uL 3.92 L Hgb (11.2-15.7) g/dL 10.7 L Hct (36.0-46.0) % 34.7 L MCV (80-95) fL 89 MCH (27.0-33.0) pg 27.3 MCHC (32.0-36.0) % 30.8 L RDW (11.7-14.6) % 16.4 H Plt Count (130-400) 10^3/uL 268 MPV (8.0-11.0) fL 10.7 Immature Gran % % 0.4 Neutrophils % % 61.2 Lymphocytes % % 30.5 Monocytes % % 6.6 Eosinophils % % 0.7 Basophils % % 0.6 Nucleated RBC % (0.0-0.3) % 0.0 Absolute Neutrophils (1.2-6.7) 10^3/uL 5.07 Absolute Lymphocytes (1.2-3.4) 10^3/uL 2.53 Absolute Monocytes (0.1-0.8) 10^3/uL 0.55 Absolute Eosinophils (0.0-0.7) 10^3/uL 0.06 Absolute Basophils (0.0-0.2) 10^3/uL 0.05 VBG pH (7.31-7.41) 7.43 H VBG pCO2 (41-51) mmHg 42 VBG pO2 mmHg 87 VBG HCO3 (23-28) mmol/L 28 VBG Total CO2 (24-29) mmol/L 26 VBG O2 Saturation % 98 VBG Base Excess (-2-3) mmol/L 4 H VBG Lactate (0.6-1.4) mmol/L 1.0 Cancelled Sodium (136-145) mmol/L 138 Potassium (3.5-5.1) mmol/L 4.5 Chloride (98-107) mmol/L 103 Carbon Dioxide (21.0-32.0) mmol/L 28.4 Anion Gap (3-11) mmol/L 6.6 BUN (7-18) mg/dL 43 H Creatinine (0.55-1.02) mg/dL 1.4 H Est GFR (CKD-EPI 2020) (mL/min/1.73m2) 37.33 Glucose (74-106) mg/dL 185 H Calcium (8.5-10.1) mg/dL 9.0 Magnesium (1.8-2.4) mg/dL 2.2 Total Bilirubin (0.2-1.0) mg/dL 0.31 AST (15-37) U/L 19 ALT (14-59) U/L 23 Alkaline Phosphatase (46-116) U/L 101 Troponin I (< or =60) ng/L < 50 NT-Pro-B Natriuret Pep (<300) pg/mL 369 H Total Protein (6.4-8.2) g/dL 7.4 Albumin (3.4-5.0) g/dL 3.4 Lipase (16-77) U/L 35 Procalcitonin ng/mL < 0.1 Quality:SDOH Health Related Social Needs: No Data to Display PFSH All Active Problems (Updated 05/15/24 @ 18:17 by JAMILA Sanz) Peripheral edema (Acute) Paroxysmal atrial fibrillation (Acute) Diabetes mellitus (Chronic) Vaginal irritation (Acute 01/06/18) 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) Superficial (introital) dyspareunia (Acute 01/06/18) Right elbow pain (Acute 01/06/18) Recurrent UTI (urinary tract infection) (Acute 01/06/18) Osteoarthritis (Acute 01/06/18) Mild obesity (Acute 01/06/18) Left knee pain (Acute 01/06/18) Intractable headache (Acute 01/06/18) Hypothyroidism (Acute 01/06/18) Hypomagnesemia (Acute 01/06/18) Hypertension (Acute 01/06/18) Hyperlipidemia, unspecified (Acute 01/06/18) Elevated liver enzymes (Acute 01/06/18) Edema (Acute 01/06/18) Dyspepsia (Acute 01/06/18) Controlled type 2 diabetes mellitus (Acute 01/06/18) Atrial fibrillation (Acute 01/06/18) Anxiety (Acute 01/06/18) Anticoagulation management encounter (Acute 01/06/18) Social History Smoking/Tobacco Use Status: Never Smoking risk assessment performed?: Yes Alcohol Intake: never Drug use: Never Substance use type: does not use Housing: house What type of physical activity do you participate in: none Do you feel safe at home: Yes Do you feel safe in your relationship?: Yes
--- NOTE | 2024-05-15 16:30 | DI.RAD_ITS ---
Exam(s) XR CHEST 2V PA LATERAL EXAM: XR CHEST 2V PA LATERAL CLINICAL HISTORY: SOB x1 month, anasarca. TECHNIQUE: 2D digital imaging was performed. COMPARISON: CR XR PORTABLE CHEST AP from 04/24/2020 FINDINGS: 2 views: Heart size is normal. The mediastinum is not widened. There are no confluent infiltrates nor pleural effusions. No pulmonary edema. Platelike atelectasis is noted projected over the anterior heart shadow on the lateral view, not visible on the frontal vi ew. IMPRESSION: Platelike atelectasis in what is either right middle lobe or lingular segment of the left lung. No c onfluent infiltrates. No pulmonary edema. No pleural effusions. DATA REPOSITORY: RADIATION DOSE DELIVERED:
[2024-05-15 17:00] LABS: BE (Venous) 4 mmol/L (-2-3); HCO3 (Venous) 28 mmol/L (23-28); O2 Sat (Venous) 98 %; TCO2 (Venous) 26 mmol/L (24-29); pCO2 (Venous) 42 mmHg (41-51); pH (Venous) 7.43 (7.31-7.41); pO2 (Venous) 87 mmHg
[2024-05-15 17:02] LABS: Abs Immature Grans 0.03 10^3/uL (0.0-0.06); Absolute Basophil Count 0.05 10^3/uL (0.0-0.2); Absolute Eosinophil Count 0.06 10^3/uL (0.0-0.7); Absolute Lymphocyte Count 2.53 10^3/uL (1.2-3.4); Absolute Monocyte Count 0.55 10^3/uL (0.1-0.8); Absolute Neutrophil Count 5.07 10^3/uL (1.2-6.7); Basophils % 0.6 %; Eosinophils % 0.7 %; HCT 34.7 % (36.0-46.0); HGB 10.7 g/dL (11.2-15.7); Immature Grans % 0.4 %; Lymphocytes % 30.5 %; MCH 27.3 pg (27.0-33.0); MCHC 30.8 % (32.0-36.0); MCV 89 fL (80-95); MPV 10.7 fL (8.0-11.0); Monocytes % 6.6 %; Neutrophils % 61.2 %; Platelet Count 268 10^3/uL (130-400); RBC 3.92 10^6/uL (3.93-5.22); RDW 16.4 % (11.7-14.6); RDW-SD 53.3 fL; WBC 8.29 10^3/uL (4.4-10.8)
[2024-05-15 17:26] LABS: ALT 23 U/L (14-59); AST 19 U/L (15-37); Albumin 3.4 g/dL (3.4-5.0); Alkaline Phosphatase 101 U/L (46-116); Anion Gap 6.6 mmol/L (3-11); BUN 43 mg/dL (7-18); Bilirubin, Total 0.31 mg/dL (0.2-1.0); CO2 28.4 mmol/L (21.0-32.0); CREATININE 1.4 mg/dL (0.55-1.02); Chloride 103 mmol/L (98-107); Estimated GFR 37.33 (mL/min/1.73m2); Glucose 185 mg/dL (74-106); Lipase 35 U/L (16-77); Magnesium 2.2 mg/dL (1.8-2.4); NT-proBNP 369 pg/mL (<300); Potassium 4.5 mmol/L (3.5-5.1); Sodium 138 mmol/L (136-145); Total Protein 7.4 g/dL (6.4-8.2); Troponin I < 50 ng/L (< or =60)
[2024-05-15 17:37] LABS: Procalcitonin < 0.1 ng/mL
[2024-05-15 18:55] VITALS: BP 154/54; PULSE 55; RESP 16; RESP 18; TEMP 36; O2SAT 96
[2024-05-15 19:05] VITALS: BP 161/48; PULSE 47; RESP 16; TEMP 36; O2SAT 96
== END 2024-05-15 18:13 | disposition home or self-care (01) ==
PROVIDERS: Emergency Provider Physician Assistant; PCP Family Medicine
DX: R60.9 Edema, unspecified (principal); R48.0 Dyslexia and alexia; I48.0 Paroxysmal atrial fibrillation; E11.9 Type 2 diabetes mellitus without complications; I10 Essential (primary) hypertension; E78.5 Hyperlipidemia, unspecified; Z79.4 Long term (current) use of insulin; Z79.01 Long term (current) use of anticoagulants
CPT/HCPCS: 36415; 80053; 82805; 83690; 84145; 93005; 99285; 71046; 83605; 83735; 83880; 84484; 85025; 93010; 99284

== ENCOUNTER 2024-05-25 01:14 | Outpatient (CLI) | payer MEDICARE, SELFPAY | END 2024-05-25 01:34 | LOC: DI 01:14 | PROVIDERS: PCP Family Medicine; Visit Provider Physician Assistant | DX: R60.9 Edema, unspecified (principal) | CPT/HCPCS: 93306 ==

== ENCOUNTER 2024-11-04 19:06 | Outpatient (REF) | payer MEDICARE, SELFPAY ==
[2024-11-04 21:53] LABS: Abs Immature Grans 0.03 10^3/uL (0.0-0.06); Absolute Basophil Count 0.06 10^3/uL (0.0-0.2); Absolute Eosinophil Count 0.08 10^3/uL (0.0-0.7); Absolute Lymphocyte Count 2.57 10^3/uL (1.2-3.4); Absolute Monocyte Count 0.66 10^3/uL (0.1-0.8); Absolute Neutrophil Count 5.28 10^3/uL (1.2-6.7); Basophils % 0.7 %; Eosinophils % 0.9 %; HCT 43.2 % (36.0-46.0); HGB 13.5 g/dL (11.2-15.7); Immature Grans % 0.3 %; Lymphocytes % 29.6 %; MCH 29.1 pg (27.0-33.0); MCHC 31.3 % (32.0-36.0); MCV 93 fL (80-95); MPV 11.1 fL (8.0-11.0); Monocytes % 7.6 %; Neutrophils % 60.9 %; Platelet Count 244 10^3/uL (130-400); RBC 4.64 10^6/uL (3.93-5.22); RDW 17.9 % (11.7-14.6); WBC 8.68 10^3/uL (4.4-10.8)
[2024-11-04 22:20] LABS: ALT 25 U/L (14-59); AST 27 U/L (15-37); Alkaline Phosphatase 120 U/L (46-116); Anion Gap 8.2 mmol/L (3-11); BUN 43 mg/dL (7-18); Bilirubin, Total 0.31 mg/dL (0.2-1.0); CO2 29.8 mmol/L (21.0-32.0); CREATININE 1.4 mg/dL (0.55-1.02); Calcium 9.7 mg/dL (8.5-10.1); Chloride 104 mmol/L (98-107); Estimated GFR 37.33 (mL/min/1.73m2); Glucose 130 mg/dL (74-106); Potassium 4.5 mmol/L (3.5-5.1); Sodium 142 mmol/L (136-145); Total Protein 7.9 g/dL (6.4-8.2)
[2024-11-04 23:11] LABS: FREE T4 1.33 ng/dL (0.76-1.46)
[2024-11-05 22:36] LABS: T3, Total 87 ng/dL (97-169)
== END 2024-11-04 19:07 | disposition home or self-care (01) ==
LOC: NCHCN 19:06
PROVIDERS: PCP Family Medicine; Visit Provider Family Medicine
DX: Z51.81 Encounter for therapeutic drug level monitoring (principal)
CPT/HCPCS: 80053; 84439; 84443; 84480; 85025

== ENCOUNTER 2024-12-14 07:58 | Outpatient (CLI) | payer MEDICARE, SELFPAY ==
--- NOTE | 2024-12-14 07:45 | RT.EKG_ITS ---
APPROVED REPORT Exam: Resting ECG Reason for Exam: afib Patient Location: O HR:48 bpm ECG Measurements Heart Rate 48 AXIS MD [id number] P [id number] QRSd 122 QRS 10 QT 511 T 15 QTc 457 Conclusion Sinus rhythm Prolonged MD interval IVCD
== END 2024-12-14 07:59 | disposition home or self-care (01) ==
LOC: DI.CARD 08:00
PROVIDERS: PCP Family Medicine; Visit Provider Internal Medicine Cardiovascular Disease
DX: I48.0 Paroxysmal atrial fibrillation (principal)
CPT/HCPCS: 93010

== ENCOUNTER 2025-01-14 18:16 | Emergency (ER) | payer MEDICARE, SELFPAY ==
[2025-01-14] VITALS (24 sets, daily range): BP systolic 131–252; BP diastolic 46–156; PULSE 51–62; RESP 18; TEMP 36.4; O2SAT 93–97
[2025-01-14 18:40] LABS: Bilirubin Negative (Negative); Blood Negative (Negative); Clarity Clear (Clear); Glucose Negative (Negative); Ketones Negative (Negative); Leukocyte Esterase Moderate (Negative); Nitrite Negative (Negative); Specific Gravity 1.015 (1.005-1.025); Urobilinogen 0.2 mg/dL (Up to 0.2)
--- NOTE | 2025-01-14 18:45 | RT.EKG_ITS ---
APPROVED REPORT Exam: Resting ECG Reason for Exam: weakness Patient Location: E HR:51 bpm ECG Measurements Heart Rate 51 AXIS WI 289 P -3 QRSd 108 QRS -2 QT 462 T 35 QTc 427 Conclusion Sinus bradycardia 51 first degree block no stemi
[2025-01-14 18:49] LABS: Bacteria Few HPF (Negative); C & S Indicated? No; Casts 3-5 Hyaline LPF (Negative); Crystals Negative HPF (Negative); Epithelial Cells Few HPF (Negative); Mucus Trace (Negative); RBC 0-2 HPF (0-2)
[2025-01-14] MEDS: fentaNYL 100 MCG/2 ML VIAL 50 MCG IVP ×2 (19:17→20:46)
[2025-01-14] MEDS: Prochlorperazine 10 MG/2 ML VIAL 5 MG IVP (19:18)
[2025-01-14 19:31] LABS: BE (Venous) 3 mmol/L (-2-3); HCO3 (Venous) 28 mmol/L (23-28); O2 Sat (Venous) 89 %; TCO2 (Venous) 25 mmol/L (24-29); pCO2 (Venous) 46 mmHg (41-51); pO2 (Venous) 58 mmHg
[2025-01-14] MEDS: Normal Saline - Diluent 50 ML VIAL IJ (19:33)
[2025-01-14 19:36] LABS: Abs Immature Grans 0.03 10^3/uL (0.0-0.06); Absolute Basophil Count 0.04 10^3/uL (0.0-0.2); Absolute Eosinophil Count 0.08 10^3/uL (0.0-0.7); Absolute Lymphocyte Count 2.79 10^3/uL (1.2-3.4); Absolute Monocyte Count 0.62 10^3/uL (0.1-0.8); Basophils % 0.5 %; Eosinophils % 0.9 %; HCT 43.1 % (36.0-46.0); Immature Grans % 0.3 %; Lymphocytes % 31.8 %; MCH 30.7 pg (27.0-33.0); MCHC 32.5 % (32.0-36.0); MCV 95 fL (80-95); MPV 10.4 fL (8.0-11.0); Monocytes % 7.1 %; Neutrophils % 59.4 %; Platelet Count 265 10^3/uL (130-400); RBC 4.56 10^6/uL (3.93-5.22); RDW 15.7 % (11.7-14.6); RDW-SD 54.6 fL; WBC 8.76 10^3/uL (4.4-10.8)
[2025-01-14] MEDS: Omnipaque 350 MG/ML 100 ML BTL IJ (19:36)
--- NOTE | 2025-01-14 19:43 | DI.CT_ITS ---
Exam(s) CT ABDOMEN PELVIS W EXAM: CT ABDOMEN PELVIS W CLINICAL HISTORY: right flank and hip pain. TECHNIQUE: Imaging Protocol: Axial computed tomography images with coronal and sagittal reformatted images were created and reviewed CONTRAST MATERIAL: Intravenous: Omnipaque 350 Contrast volume:100 ml Oral: no COMPARISON: CR PELVIS AP from 08/29/2010 FINDINGS: ABDOMEN and PELVIS: Lung Bases: No acute findings. Liver: Normal density. No suspicious mass. Gallbladder and biliary tract: Cholecystectomy. Dilatation of the common bile duct likely secondary to post cholecystectomy status. Pancreas: Somewhat atrophic. Normal density. No abnormal calcifications or inflammatory process. No evidence of mass. Spleen: Normal. Kidneys: Normal size, contour and axis. No radiodense stones. No obstructive uropathy. 15 millimeter hypodense circumscribed lesion in the mid lateral left kidney likely represent a hyperdense cyst. U ltrasound could be performed for further evaluation. Adrenal glands: No masses seen. Vasculature: Abdominal aorta non-dilated. Soft tissues: Increased density in the anterior abdominal wall may be related to subcutaneous injecti ons. Bladder: No gross wall thickening. No calculi.No focal mass. Bowel: Question of of 1 versus 2 adjacent diverticula of the duodenal sweep. No obstruction. No katharina wel wall thickening. Appendix normal. Peritoneal cavity: No ascites. No focal collection. No mesenteric inflammatory response. No free air . Bones: Bilateral hip prostheses appear grossly unchanged when compared with prior plain films. Degen erative changes in the spine. No compression fractures. Reproductive organs: Unremarkable. Lymph nodes: No pathologically enlarged lymph nodes. IMPRESSION:: No acute abnormality in the abdomen or pelvis. One large versus 2 adjacent duodenal diverticula. Sigmoid diverticulosis. No evidence of diverticulitis. 15 millimeter lesion on the left kidney has the appearance of a hyperdense cyst. Ultrasound could be performed for further evaluation. RADIATION DOSE DELIVERED: Total DLP DATA REPOSITORY: All CT scans at this facility are submitted to the National Radiology Data Registry (NRDR) Dose Index Registry (DIR) with the [employer] ([employer]). RADIATION OPTIMIZATION: All CT scans at this facility use at least one of these dose optimization te chniques: automated exposure control; mA and/or kV adjustment per patient size (includes targeted exa ms where dose is matched to clinical indication); or iterative reconstruction.
--- NOTE | 2025-01-14 19:44 | DI.CT_ITS ---
Exam(s) CT HEAD WO EXAM: CT HEAD WO CLINICAL HISTORY: headache. TECHNIQUE: Imaging Protocol: Axial computed tomography images with coronal and sagittal reformatted images were created and reviewed COMPARISON: CT CT HEAD CERVICAL SPINE WO from 07/17/2018 FINDINGS: Ventricles and Extra axial spaces: Normal in size and morphology for the patient's age. Hemorrhage: None. Cerebral parenchyma: No evidence of acute infarct or mass. Mild atrophy. Mild white matter changes of small vessel disease. Midline shift: None. Brainstem/Cerebellum: Normal. Calvarium: Chronic benign bony excrescence again noted in the midline frontal region. Visualized Paranasal sinuses:Clear. Mastoids: Clear. Soft Tissues: Unremarkable. ORBITS: Unremarkable. PITUITARY: Not enlarged. IMPRESSION: No acute intracranial process. RADIATION DOSE DELIVERED: Total DLP DATA REPOSITORY: All CT scans at this facility are submitted to the National Radiology Data Registry (NRDR) Dose Index Registry (DIR) with the [employer] (ACR). RADIATION OPTIMIZATION: All CT scans at this facility use at least one of these dose optimization te chniques: automated exposure control; mA and/or kV adjustment per patient size (includes targeted exa ms where dose is matched to clinical indication); or iterative reconstruction.
[2025-01-14 19:51] LABS: ALT 29 U/L (14-59); AST 26 U/L (15-37); Alkaline Phosphatase 133 U/L (46-116); Anion Gap 8.2 mmol/L (3-11); BUN 41 mg/dL (7-18); Bilirubin, Total 0.4 mg/dL (0.2-1.0); CO2 27.8 mmol/L (21.0-32.0); CREATININE 1.4 mg/dL (0.55-1.02); Calcium 9.6 mg/dL (8.5-10.1); Chloride 103 mmol/L (98-107); Estimated GFR 37.33 (mL/min/1.73m2); Glucose 146 mg/dL (74-106); Lipase 32 U/L (<78); Potassium 4.5 mmol/L (3.5-5.1); Sodium 139 mmol/L (136-145); Total Protein 8.4 g/dL (6.4-8.2)
[2025-01-14 20:11] LABS: Magnesium 2.2 mg/dL (1.8-2.4); Troponin I 11 ng/L (<or=51)
--- NOTE | 2025-01-14 20:14 | DI.VRAD_ITS ---
PROCEDURE INFORMATION: Exam: CT Head Without Contrast Exam date and time: 01/14/2025 7:25 PM Age: 84 years old Clinical indication: Other: Headache TECHNIQUE: Imaging protocol: Computed tomography of the head without contrast. COMPARISON: CT HEAD CERVICAL SPINE WO 07/17/2018 11:28 AM FINDINGS: Brain: Chronic periventricular small-vessel ischemic changes. Mild cerebral atrophy. Cerebral ventricles: No ventriculomegaly. Paranasal sinuses: Visualized sinuses are unremarkable. No fluid levels. Mastoid air cells: Visualized mastoid air cells are well aerated. Bones: Unremarkable. No acute fracture. Soft tissues: Unremarkable. IMPRESSION: 1. No acute intracranial abnormalities. 2. Chronic periventricular small-vessel ischemic changes. 3. Mild cerebral atrophy. Dictated and Authenticated by: Austin Tejada MD. Orderin Amelie Chapin MD
--- NOTE | 2025-01-14 20:21 | DI.VRAD_ITS ---
PROCEDURE INFORMATION: Exam: CT Abdomen And Pelvis With Contrast Exam date and time: 01/14/2025 7:35 PM Age: 84 years old Clinical indication: Other: Right flank and hip pain TECHNIQUE: Imaging protocol: Computed tomography of the abdomen and pelvis with contrast. Contrast material: OMNIPAQUE 350; Contrast volume: 100 ml; Contrast route: INTRAVENOUS (IV); COMPARISON: CR XR CHEST 2V PA LATERAL 05/15/2024 5:15 PM FINDINGS: Liver: Normal. No mass. Gallbladder and biliary ducts: Status post cholecystectomy. Prominence of the extrahepatic bile duct likely secondary to cholecystectomy. Pancreas: Normal. No ductal dilation. Spleen: Calcified splenic granulomas. Adrenal glands: Normal. No mass. Kidneys and ureters: Small isodense lesion identified in the left kidney which measures 1.5 cm. This probably represents a renal cyst although Hounsfield measurements suggest that this is not a simple Bosniak type 1 cysts. Further evaluation with ultrasound examination is recommended on an elective basis. Stomach and bowel: Findings suggesting a duodenal diverticulum in the 3rd portions of the duodenal measuring 3.1 cm in greatest diameter. Sigmoid diverticulosis. No CT evidence for diverticulitis. Appendix: No evidence of appendicitis. Intraperitoneal space: Unremarkable. No free air. No significant fluid collection. Vasculature: Aortic vascular calcifications. Lymph nodes: Unremarkable. No enlarged lymph nodes. Urinary bladder: Bladder is incompletely distended. Reproductive: Unremarkable as visualized. Bones/joints: Streak artifact from bilateral hip prostheses limiting evaluation of the pelvis. Osteoarthritic changes identified involving the lumbar spine with an anterolisthesis of L4 in relation to L5 which is degenerative in nature. Soft tissues: Unremarkable. IMPRESSION: 1. Sigmoid diverticulosis. No CT evidence for diverticulitis. 2. Duodenal diverticulum. 3. Left renal cyst for which further evaluation with ultrasound examination is recommended as detailed above. Dictated and Authenticated by: Austin Tejada MD. Orderin Amelie Chapin MD
[2025-01-14 20:49] LABS: Troponin I 16 ng/L (<or=51)
[2025-01-14] MEDS: Fosfomycin Tromethamine 3 GM PACKET PO (21:17)
[2025-01-14] MEDS: oxyCODONE 5 MG TAB PO (21:17)
--- NOTE | 2025-01-14 22:54 | ED.GENADUL_ITS ---
Discharge Plan Disposition Patient Disposition: Home Condition: Stable Discharge Details Clinical Impression: Acute pain of right hip, Back pain Primary Care Provider: Stanley Le ED Provider: Dari Kinsey Home Meds and New Rx's Prescriptions: New oxycodone 5 mg capsule 2.5 mg PO BID PRNQty: 4 0RF Continued clonidine HCl 0.1 mg tablet 0.1 mg PO QHS torsemide 10 mg tablet 20 mg PO DAILY Qty: 30 insulin glargine [Lantus U-100 Insulin] 100 unit/mL solution 50 unit subcut QPM amiodarone 200 MG tablet 200 mg PO QNOON Qty: 90 Rx Instructions: Take with food. (DME) lancets [BD Ultra-Fine II Lancets] 1 EACH misc 1 ea Miscellaneous PRN simvastatin 10 MG tablet 10 mg PO DAILY valsartan [Diovan] 320 mg tablet 160 mg PO DAILY magnesium oxide 400 MG tablet 400 mg PO BID Qty: 180 2RF Rx Instructions: Dr. Bryant may need to increase your dose. turmeric root extract 500 MG capsule 1 tab PO DAILY levothyroxine 137 mcg tablet 137 mcg PO DAILY Xarelto 20 mg tablet 20 mg PO QNOON Rx Instructions: must administer with evening meal zinc 50 mg tablet 50 mg PO DAILY Discharge Instructions Instructions: Urinary tract infections in adults, Hip pain in adults Additional Instructions: You received a dose of antibiotics for possible urinary tract infection while your culture is pending Use your walker with ambulation Take Tylenol per package instructions for pain you may applied Voltaren gel or diclofenac gel which is [id number] topically for pain over the affected area Follow-up with orthopedics with persistent pain Return earlier with fever, chills, or with any new or worsening complaints have your blood pressure rechecked by your doctor in 1 to 2 days Referrals: Alli Guan MD [ [facility] STAFF PHYSICIAN] - 1 day HPI General Date/Time Provider Initiated Documentation: 01/14/25 18:25 . HPI Narrative: 84-year-old female with paroxysmal atrial fibrillation, tachybradycardia syndrome on anticoagulation, hypothyroidism, hypomagnesemia, hypertension, and [id number] diabetes, presenting with right-sided back pain radiating to right flank. Reports persistent urinary frequency without changes in medication regimen. Has not taken antihypertensive medication today. Related Data Home Medications ?Medication ?Instructions ?Recorded ?Confirmed simvastatin 10 mg tablet 10 mg PO DAILY 12/31/15 01/14/25 magnesium oxide 400 mg (241.3 mg 400 mg PO BID #180 tabs 07/15/16 01/14/25 magnesium) tablet amiodarone 200 mg tablet 200 mg PO QNOON #90 tab-caps 09/16/16 01/14/25 lancets 30 gauge (BD Ultra-Fine II 01/06/18 01/14/25 Lancets) turmeric root extract 500 mg 1 tab PO DAILY 05/07/18 01/14/25 capsule levothyroxine 137 mcg tablet 137 mcg PO DAILY 04/24/20 01/14/25 clonidine HCl 0.1 mg tablet 0.1 mg PO QHS 06/23/20 01/14/25 valsartan 320 mg tablet (Diovan) 160 mg PO DAILY 12/27/21 01/14/25 rivaroxaban 20 mg tablet (Xarelto) 20 mg PO QNOON 04/01/22 01/14/25 insulin glargine 100 unit/mL 50 unit subcut QPM 12/14/24 01/14/25 subcutaneous solution (Lantus U-100 Insulin) torsemide 10 mg tablet 20 mg PO DAILY #30 tab-caps 12/14/24 01/14/25 oxycodone 5 mg capsule 2.5 mg (1/2 x 5 mg) PO BID PRN #4 01/14/25 caps zinc 50 mg tablet 50 mg PO DAILY 01/14/25 01/14/25 Previous Rx's ?Medication ?Instructions ?Recorded magnesium oxide 400 mg (241.3 mg 400 mg PO BID #180 tabs 07/15/16 magnesium) tablet oxycodone 5 mg capsule 2.5 mg (1/2 x 5 mg) PO BID PRN #4 01/14/25 caps Allergies Allergy/AdvReac Type Severity Reaction Status Date / Time GONZÁLEZ Inhibitors Allergy Mild Other (See Verified 01/14/25 18:24 Comment) Sulfa (Sulfonamide Allergy Mild Other (See Verified 01/14/25 18:24 Antibiotics) Comment) aspirin (From Anacin) AdvReac Intermediate Other (See Verified 01/14/25 18:24 Comment) caffeine (From Anacin) AdvReac Intermediate Other (See Verified 01/14/25 18:24 Comment) morphine AdvReac Intermediate Visual Verified 01/14/25 18:24 Disturbances atenolol AdvReac Mild bradycardia Verified 01/14/25 18:24 apixaban (From Eliquis) AdvReac confusion Verified 01/14/25 18:24 diltiazem AdvReac bradycardia Verified 01/14/25 18:24 General Stated Complaint: FlankPain LIZET: 3 Exam Narrative Exam Narrative: General Appearance: Normal. Vital signs: Within normal limits. HEENT: Within normal limits. Respiratory: Lungs clear to auscultation. Cardiovascular: Regular heart rate and rhythm. Gastrointestinal: No abdominal tenderness. Genitourinary: No groin tenderness. Back, Musculoskeletal: Tenderness in right flank. Pain with right hip movement. Extremities: Bilateral peripheral edema, 3+, nontender. Skin: Warm and dry, no rash. Neurological: Neurovascularly intact. Course Vital Signs Vital signs: Vital Signs Temperature 36.4 C 01/14/25 18:19 Pulse 54 L 01/14/25 18:19 Respiratory Rate 18 01/14/25 18:19 Blood Pressure 201/156 H 01/14/25 18:19 Pulse Oximetry 96 01/14/25 18:19 Temperature 36.4 C 01/14/25 21:38 Pulse 55 L 01/14/25 21:38 Respiratory Rate 18 01/14/25 21:38 Blood Pressure 215/61 H 01/14/25 21:38 Blood Pressure Mean 120 01/14/25 21:16 Pulse Oximetry 94 01/14/25 21:38 Oxygen Delivery Method Room Air 01/14/25 18:19 Oxygen Flow Rate 0 01/14/25 18:19 Pain Level 10 01/14/25 21:38 Lab/Test Results Lab/Test Results: Laboratory Tests Range/Units 01/14/25 01/14/25 01/14/25 18:34 19:15 20:27 WBC (4.4-10.8) 10^3/uL 8.76 RBC (3.93-5.22) 10^6/uL 4.56 Hgb (11.2-15.7) g/dL 14.0 Hct (36.0-46.0) % 43.1 MCV (80-95) fL 95 MCH (27.0-33.0) pg 30.7 MCHC (32.0-36.0) % 32.5 RDW (11.7-14.6) % 15.7 H Plt Count (130-400) 10^3/uL 265 MPV (8.0-11.0) fL 10.4 Immature Gran % % 0.3 Neutrophils % % 59.4 Lymphocytes % % 31.8 Monocytes % % 7.1 Eosinophils % % 0.9 Basophils % % 0.5 Nucleated RBC % (0.0-0.3) % 0.0 Absolute Neutrophils (1.2-6.7) 10^3/uL 5.20 Absolute Lymphocytes (1.2-3.4) 10^3/uL 2.79 Absolute Monocytes (0.1-0.8) 10^3/uL 0.62 Absolute Eosinophils (0.0-0.7) 10^3/uL 0.08 Absolute Basophils (0.0-0.2) 10^3/uL 0.04 VBG pH (7.31-7.41) 7.40 VBG pCO2 (41-51) mmHg 46 VBG pO2 mmHg 58 VBG HCO3 (23-28) mmol/L 28 VBG Total CO2 (24-29) mmol/L 25 VBG O2 Saturation % 89 VBG Base Excess (-2-3) mmol/L 3 Sodium (136-145) mmol/L 139 Potassium (3.5-5.1) mmol/L 4.5 Chloride (98-107) mmol/L 103 Carbon Dioxide (21.0-32.0) mmol/L 27.8 Anion Gap (3-11) mmol/L 8.2 BUN (7-18) mg/dL 41 H Creatinine (0.55-1.02) mg/dL 1.4 H Est GFR (CKD-EPI 2020) (mL/min/1.73m2) 37.33 Glucose (74-106) mg/dL 146 H Calcium (8.5-10.1) mg/dL 9.6 Magnesium (1.8-2.4) mg/dL 2.2 Total Bilirubin (0.2-1.0) mg/dL 0.4 AST (15-37) U/L 26 ALT (14-59) U/L 29 Alkaline Phosphatase (46-116) U/L 133 H Troponin I (<or=51) ng/L 11 16 Total Protein (6.4-8.2) g/dL 8.4 H Albumin (3.4-5.0) g/dL 4.0 Lipase (<78) U/L 32 TSH (0.36-3.74) uIU/mL 9.70 H Free T4 (0.76-1.46) ng/dL 1.30 Urine Color (Yellow) Yellow Urine Clarity (Clear) Clear Urine pH (5-8) 5.0 Ur Specific [place] (1.005-1.025) 1.015 Urine Protein (Neg-Trace) mg/dL Negative Urine Ketones (Negative) mg/dL Negative Urine Blood (Negative) Negative Urine Nitrite (Negative) Negative Urine Bilirubin (Negative) Negative Urine Urobilinogen (Up to 0.2) mg/dL 0.2 Ur Leukocyte Esterase (Negative) Moderate H Urine RBC (0-2) HPF 0-2 Urine WBC (0-5) HPF 5-10 Ur Epithelial Cells (Negative) HPF Few Urine Crystals (Negative) HPF Negative Urine Bacteria (Negative) HPF Few Urine Casts (Negative) LPF 3-5 Hyaline Urine Mucus (Negative) Trace Ur Culture Indicated? No Urine Glucose (Negative) mg/dL Negative Medical Decision Making CBC within normal limits. CMP baseline for patient. BUN 41, creatinine 1.4, glucose 146. Urinalysis: moderate leukocyte esterase, 5-10 WBCs. Initial Assessment: 84-year-old female with history of paroxysmal atrial fibrillation, tachybradycardia syndrome on chronic anticoagulation, hypothyroidism, hypomagnesemia, hypertension, tfe-ektnlmr-enjpuypyl diabetes, presents with right sided back pain radiating into her right hip, urinary frequency, and markedly elevated blood pressure. Differential Diagnosis: - Urinary Tract Infection: Symptoms of flank and back pain. Moderate leukocyte esterase and 5-10 white blood cells in urinalysis. Treat with fosfomycin. - Musculoskeletal Pain: Pain with movement of right hip. Referral to orthopedics due to previous hip replacement in affected area. - Hypertension: Markedly elevated blood pressure. Asymptomatic. Advise taking antihypertensive medication upon returning home. ED Course: - Administered fosfomycin for UTI. - Provided oxycodone for pain management. - Referral to orthopedics for hip recheck. - Encouraged to take blood pressure medication when home. - Reviewed return precautions; patient expressed understanding. Final Assessment: Patient treated for UTI with fosfomycin and provided oxycodone for pain management. Referral to orthopedics for hip recheck due to previous hip replacement. Blood pressure elevated but asymptomatic; advised to take antihypertensive medication upon returning home. Clinical Impression: - Urinary Tract Infection -back apin - Hypertension Disposition: - Discharge MDM Components Evaluation: - Number of Differential Diagnoses or Management Options: Urinary Tract Infection, Musculoskeletal Pain, Hypertension - Amount and Complexity of Data Reviewed: CBC, CMP, BUN, creatinine, glucose, urinalysis - Risk of Complication and Morbidity or Mortality: Elevated blood pressure poses risk; UTI requires prompt treatment. Quality:[facility] Health Related Social Needs: No Data to Display PFSH All Active Problems (Updated 01/14/25 @ 21:09 by JAMILA Winter) Back pain (Acute) Acute pain of right hip (Acute) Paroxysmal atrial fibrillation (Acute) Diabetes mellitus (Chronic) Vaginal irritation (Acute 01/06/18) 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) Superficial (introital) dyspareunia (Acute 01/06/18) Right elbow pain (Acute 01/06/18) Recurrent UTI (urinary tract infection) (Acute 01/06/18) Osteoarthritis (Acute 01/06/18) Mild obesity (Acute 01/06/18) Left knee pain (Acute 01/06/18) Intractable headache (Acute 01/06/18) Hypothyroidism (Acute 01/06/18) Hypomagnesemia (Acute 01/06/18) Hypertension (Acute 01/06/18) Hyperlipidemia, unspecified (Acute 01/06/18) Elevated liver enzymes (Acute 01/06/18) Edema (Acute 01/06/18) Dyspepsia (Acute 01/06/18) Controlled type 2 diabetes mellitus (Acute 01/06/18) Atrial fibrillation (Acute 01/06/18) Anxiety (Acute 01/06/18) Anticoagulation management encounter (Acute 01/06/18) Social History Smoking/Tobacco Use Status: Never Smoking risk assessment performed?: Yes Alcohol Intake: never Drug use: Never Substance use type: does not use Housing: house What type of physical activity do you participate in: none Do you feel safe at home: Yes Do you feel safe in your relationship?: Yes
== END 2025-01-14 21:38 | disposition home or self-care (01) ==
PROVIDERS: Emergency Provider Physician Assistant; PCP Family Medicine
DX: M25.551 Pain in right hip (principal); I48.0 Paroxysmal atrial fibrillation; I49.5 Sick sinus syndrome; E11.9 Type 2 diabetes mellitus without complications; E03.9 Hypothyroidism, unspecified; E78.5 Hyperlipidemia, unspecified; I10 Essential (primary) hypertension; Z79.4 Long term (current) use of insulin; Z79.01 Long term (current) use of anticoagulants
CPT/HCPCS: 36415; 80053; 80151; 82805; 83690; 93005; 96374; 96375; 96376; 99285; 70450; 74177; 81003; 81015; 83735; 84439; 84443; 84484; 85025; 93010; J0780; J3010; J3490

== ENCOUNTER 2025-05-09 15:44 | Outpatient (REF) | payer MEDICARE, SELFPAY ==
[2025-05-09 17:18] LABS: COMMENT (LAB VIEW ONLY) 37.98 mg/dL; Microalb ug/mg Crea 9.0 ug/mg Cr
== END 2025-05-09 15:45 | disposition home or self-care (01) ==
LOC: NCHCN 15:44
PROVIDERS: PCP Family Medicine; Visit Provider Family Medicine
DX: E11.9 Type 2 diabetes mellitus without complications (principal)
CPT/HCPCS: 82043; 82570